=== PATIENT | male | born 1935 | race African-American/Black ===

== ENCOUNTER 2017-09-22 16:18 | Outpatient (CLI) | payer MEDICARE ==
--- NOTE | 2017-09-22 16:29 | SJPRAD ---
TWO VIEWS CHEST: 09/22/17 HISTORY: COPD exacerbation. PA and lateral views of the chest is obtained on 09/22/17. Comparison made to previous exam from 01/11/17. Two views chest demonstrates ectasia of the aorta. There is some blunting of the costophrenic angles bilaterally compatible with small areas of pleural scarring. Areas of patchy density seen in the left lung base compatible with areas of scar. Unchanged since the previous exam from 01/11/17. No signific ant interval changes seen. IMPRESSION: Stable two views chest. POS: SHANTE
== END 2017-09-22 16:19 | disposition home or self-care (01) ==
LOC: MWLC RAD 16:18
PROVIDERS: ATTEND Family Medicine
DX: J44.9 Chronic obstructive pulmonary disease, unspecified (principal)

== ENCOUNTER 2018-06-25 07:41 | Outpatient (CLI) | payer MEDICARE ==
--- NOTE | 2018-06-25 11:11 | CT ---
LUNG SCREENING LOW DOSE CT SCAN OF THE CHEST WITHOUT IV CONTRAST: HISTORY: Asymptomatic patient meeting NCCN criteria for lung screening. COMPARISON: CT pulmonary angiogram dated 01/19/13. FINDINGS: There is a stable 4-5 mm subpleural nodule in the left upper lobe. No new lung nodules are seen. Em physematous changes are redemonstrated bilaterally. Coronary artery calcifications are again noted. No aneurysmal dilatation of the thoracic aorta is se en. No pleural or pericardial effusions are identified. There is bilateral gynecomastia. There are degenerative changes in the spine. IMPRESSION: Lung RADS category 2 - benign appearance or behavior. Nodule with a very low likelihood of becoming a clinically active cancer due to size or lack of growth. RECOMMENDATION: Continue annual screening with low-dose CT in 12 months. POS: SHANTE
== END 2018-06-25 07:42 | disposition home or self-care (01) ==
LOC: CT 07:41
PROVIDERS: ATTEND Family Medicine
DX: F17.291 Nicotine dependence, other tobacco product, in remission (principal); R91.1 Solitary pulmonary nodule
CPT/HCPCS: G0297

== ENCOUNTER 2018-06-27 06:37 | Outpatient (CLI) | payer MEDICARE | END 2018-06-27 06:38 | disposition home or self-care (01) | LOC: BICULT 06:37 | PROVIDERS: ATTEND Family Medicine | DX: F17.291 Nicotine dependence, other tobacco product, in remission (principal) | CPT/HCPCS: 76775 ==

== ENCOUNTER 2018-10-23 12:55 | Outpatient (CLI) | payer MEDICARE ==
--- NOTE | 2018-10-23 14:34 | RAD ---
CHEST PA AND LATERAL: HISTORY: Dyspnea. COMPARISON: 11/17/2017 FINDINGS: The heart size is normal. The aorta is tortuous. Evidence of old granulomatous disease, COPD, and c hronic parenchymal changes are again seen. No focal areas of consolidation, pneumothoraces, or pleur al effusions are identified. IMPRESSION: Stable examination. No acute process. POS: OFF
== END 2018-10-23 12:56 | disposition home or self-care (01) ==
LOC: RAD 12:55
PROVIDERS: ATTEND Internal Medicine Critical Care Medicine
DX: R06.00 Dyspnea, unspecified (principal)
CPT/HCPCS: 71046

== ENCOUNTER 2019-05-29 09:02 | Outpatient (CLI) | payer MEDICARE ==
--- NOTE | 2019-05-29 13:29 | NM ---
Exam: Nuclear medicine whole body bone scan HISTORY: Prostate cancer Comparison: 07/04/2011 TECHNIQUE: Patient was administered 32.20 mCi of technetium 99m sestamibi. Whole body delayed imaging is performed. FINDINGS: There is physiologic distribution of the radiotracer. Persistent increased radiotracer localization i nvolving the posterior right 10th rib. Degenerative changes in both shoulders. No scintigraphic evidence of metastases. IMPRESSION: No scintigraphic evidence of osseous metastases Transcribed Date/Time: 05/29/2019 1:49 PM
== END 2019-05-29 09:03 | disposition home or self-care (01) ==
LOC: NM 09:02
PROVIDERS: ATTEND Urology
DX: C61 Malignant neoplasm of prostate (principal)
CPT/HCPCS: 78306; A9503

== ENCOUNTER 2019-07-29 10:33 | Inpatient (IN) | payer MEDICARE ==
--- NOTE | 2019-07-29 13:02 | ULT ---
Venous duplex sonogram right lower extremity HISTORY: Right leg pain and edema. FINDINGS: The right common femoral vein and greater saphenous junction were evaluated along with the femoral, deep femoral, popliteal, and posterior tibial veins. There is good color and spectral Doppler flow, compression, and augmentation. Reactive appearing lymph nodes at the right groin are noted. IMPRESSION: No sonographic evidence of DVT within the right lower extremity.
[2019-07-29] MEDS ORDERED: Piperacillin/Tazobactam 4.5 GM VIAL ONE (13:36)
[2019-07-29] MEDS ORDERED: HYDROcodone/Acetaminophen 5/325 mg Tablet ONE (13:36)
[2019-07-29 13:47] LABS: #Lymphocytes 1.3 thou/uL (1.20-3.40); #Monocytes 0.7 thou/uL (0.11-0.59); #Neutrophils 7.2 thou/uL (1.40-6.50); %Basophils 0.1 % (0.0-1.0); %Eosinophils 0.1 % (0.0-10.0); %Monocytes 7.1 % (0.0-10.0); %Neutrophils 78.7 % (42.0-75.0); Hemoglobin 11.5 g/dL (14.0-18.0); Mean Corpuscular HGB CONC 30.9 g/dL (32.0-36.0); Mean Corpuscular Hemoglobin 30.3 pg (27.0-31.0); Mean Corpuscular Volume 98.1 fL (78.0-98.0); Mean Platelet Volume 6.8 fL (7.4-10.4); Platelet Count 272 thou/uL (130-400); RBC Distribution Width 11.8 % (11.5-14.5); Red Blood Cell (RBC) Count 3.81 mill/uL (4.70-6.10); White Blood Cell (WBC) Count 9.2 thou/uL (4.8-10.8)
[2019-07-29 14:12] LABS: ALT (SGPT) 14 U/L (8-55); AST (SGOT) 31 U/L (5-34); Albumin 3.7 g/dL (3.4-4.8); Alkaline Phosphatase 68 U/L (40-110); Anion Gap 13 mmol/L (10-20); BUN (Urea Nitrogen) 16 mg/dL (8.4-25.7); Bilirubin, Total 0.6 mg/dL (0.2-1.2); Calc. Creatinine Clearance 0 mL/min (70-130); Calcium 9.9 mg/dL (7.8-10.44); Carbon Dioxide 28 mmol/L (23-31); Chloride 99 mmol/L (98-107); Estimated GFR-MDRD 89; Globulin 4.7 g/dL (2.4-3.5); Glucose 123 mg/dL (83-110); Potassium 5.7 mmol/L (3.5-5.1); Protein, Total 8.4 g/dL (5.8-8.1); Sodium 134 mmol/L (136-145)
[2019-07-29 15:27] LABS: Anion Gap 13 mmol/L (10-20); BUN (Urea Nitrogen) 16 mg/dL (8.4-25.7); Calc. Creatinine Clearance 0 mL/min (70-130); Calcium 9.6 mg/dL (7.8-10.44); Carbon Dioxide 25 mmol/L (23-31); Chloride 100 mmol/L (98-107); Estimated GFR-MDRD Greater than 90; Glucose 124 mg/dL (83-110); Potassium 4.9 mmol/L (3.5-5.1); Sodium 133 mmol/L (136-145)
[2019-07-29] MEDS ORDERED: Acetaminophen 650 MG Suppository PR PRN (17:36)
[2019-07-29] MEDS ORDERED: Ondansetron ODT 4 MG TAB PO PRN (17:36)
[2019-07-29] MEDS ORDERED: Ondansetron PF 4 MG/2 ML Vial IVP PRN (17:36)
[2019-07-29] MEDS ORDERED: Senokot S 8.6-50 MG TAB PO PRN (17:36)
[2019-07-29 17:56] LABS: Lactic Acid 2.6 mmol/L (0.5-2.2)
[2019-07-29] MEDS ORDERED: Dextrose 50% Abboject 50 ML SYRINGE SLOW IVP PRN (18:11)
[2019-07-29] MEDS ORDERED: Dextrose 5% in Water 1,000 ML IV PRN (18:11)
[2019-07-29] MEDS ORDERED: HumaLOG 300 UNITS/3 ML VIAL SC PRN ×2 (18:11)
[2019-07-29 18:55] VITALS: BMI 23.6
--- NOTE | 2019-07-29 19:14 | RAD ---
EXAM: Chest Two Views 07/29/2019 7:11 PM HISTORY: Shortness of breath and wheezing COMPARISON: Prior exam dated October 23, 2018 FINDINGS: Heart: Normal in size and contour. Pulmonary vessels: Normal. Costophrenic angles: Clear. Lungs: Severe COPD is stable. Calcified granuloma of both lung bases appears stable. Pneumothorax: None. Osseous structures:Intact. Additional findings: None. IMPRESSION: No significant acute intrathoracic disease.
[2019-07-29] MEDS: Sodium Chloride 0.9% 1,000 ML IV SCH (19:42)
[2019-07-29] MEDS: Acetaminophen 325 MG TAB PO PRN (20:00)
[2019-07-29] MEDS: Piperacillin/Tazobactam 3.375 GM in Sodium Chloride 0.9% 100 ML IVPB SCH (20:01)
[2019-07-29 21:59] LABS: Bacteria/HPF None Seen HPF (None Seen); Bilirubin Negative (Negative); Blood, Urine Negative (Negative); Clarity Clear (Clear); Glucose, Urine (Dipstick) Normal (Negative); Leukocyte Negative Leu/uL (Negative); Nitrite Negative (Negative); Protein, Urine (Dipstick) Negative (Neg-Trace); RBC/HPF 0-3 HPF (0-3); Squamous Epithelial None Seen HPF (0-3); Urobilinogen Normal mg/dL (Less than 2); WBC/HPF 0-3 HPF (0-3)
[2019-07-29 22:00] LABS: Urine Culture Reflex No No
--- NOTE | 2019-07-30 01:48 | HP ---
TIME OF ASSESSMENT: 1700 hours. PRIMARY CARE PHYSICIAN: None. CHIEF COMPLAINT: Right lower leg swelling and redness. HISTORY OF PRESENT ILLNESS: Mr. Moran is an 84-year-old gentleman, who presents with pain, swelling, and redness of right lower extremity. He states he has noticed that this is progressively worsening for the last week. Apparently, he was seen by his primary care physician and was started on oral antibiotics. The patient is unsure which antibiotic this was, but states he has not had any improvement. Reports having issues with lower leg swelling, which has been chronic in the past. He does state the edema is worse on the right leg than on the left. On arrival to the emergency department, the patient underwent laboratory studies, which showed white blood count of 9.2, neutrophils of 78.7, hemoglobin 11.5, hematocrit 37.4, and platelets 272. Sodium 132, potassium 4.9, BUN 16, creatinine 0.90, GFR greater than 90, glucose 124, lactic acid 2.1, calcium 9.6, and magnesium 1.9. LFTs unremarkable. Protein 8.4. Urinalysis was done and was negative for UTI. He also underwent a vascular ultrasound of the right lower extremity, which showed no sonographic evidence of DVT within the right lower extremity. There were reactive appearing lymph nodes at the right groin. He had a chest x-ray done demonstrating no significant acute intrathoracic disease. He was started on IV antibiotics including vancomycin and Zosyn. Given [place] for pain and received 1 L of IV fluids. The patient referred for further management. REVIEW OF SYSTEMS: The patient denies having any recent fevers, chills, or sweats. Denies having any headaches or dizziness. Denies any nausea or vomiting. No changes with his appetite. Denies any abdominal pain or cramping. No urinary symptoms. All other review of systems are negative. PAST MEDICAL HISTORY: 1. Chronic venous stasis. 2. Recurring lower leg cellulitis. 3. Type 2 diabetes mellitus. 4. Hypertension. 5. Prostate cancer. 6. COPD. PAST SURGICAL HISTORY: None. FAMILY HISTORY: Significant for diabetes in his daughter. SOCIAL HISTORY: The patient reports smoking two packs of cigarettes a day for 40 years in the past. He quit several years ago. Also previously had heavy alcohol consumption, but quit in 1989. Denies any illicit drug use. ALLERGIES: LATEX. CURRENT MEDICATIONS: The patient is unable to provide at this present time. Verification by nurse is pending. PHYSICAL EXAMINATION: GENERAL: The patient appears well developed, well nourished, and is in no acute distress. VITAL SIGNS: Temperature 98.2, pulse rate 80, respirations 17, O2 saturation 90% on room air, and blood pressure 135/69. HEENT: Normocephalic and atraumatic. Pupils are equal, round, and reactive to light. Sclerae without icterus. Oropharynx is clear. NECK: Supple. LUNGS: Notable for mild expiratory wheezing bilaterally at the bases. CARDIAC: Regular rate and rhythm. ABDOMEN: Soft, nontender, nondistended with bowel sounds present. EXTREMITIES: Bilateral lower extremities notable for edema, warmth, and redness evident in the right lower extremity. Edema is +3 bilaterally. He does have evidence of chronic venous stasis in both lower legs. Area of well-healed previous ulcer on the medial aspect of his ankle. NEUROLOGIC: Alert and oriented x3. SKIN: Warm and dry. INVESTIGATIONS: As mentioned above in HPI. IMPRESSION AND PLAN: Mr. Moran is an 84-year-old gentleman with known history of chronic venous stasis and the right lower extremity cellulitis, who presents for management of the following; 1. Recurrent right lower extremity cellulitis. The patient has undergone a Doppler, which was negative for deep venous thrombosis. He has been started on IV antibiotics with vancomycin and Zosyn. Laboratory studies were notable for left shift. Lactic acid normal at 2.1. Urinalysis negative. Chest x-ray unremarkable. We will continue IV antibiotics. 2. Chronic obstructive pulmonary disease. The patient with expiratory wheezing at the bilateral bases, but denies any shortness of breath. We will continue to monitor O2 saturations. DuoNebs ordered. As mentioned, chest x-ray was unremarkable. We will obtain an ABG. 3. Diabetes mellitus. Resume home medications once verified. We will monitor glucose and initiate insulin sliding scale. 4. Hypertension. Resume home medications once verified. Monitor blood pressure. 5. Gastrointestinal prophylaxis with famotidine. 6. Deep venous thrombosis prophylaxis. We will hold mechanical SCDs given degree of edema. The patient is ambulatory. 7. Code status, full. His surrogate decision maker is Marissa Torres. The patient's case to be discussed with attending for further recommendations. Job ID: [id number]
[2019-07-30] MEDS ORDERED: Vancomycin HCl 1 GM in Premix Bag 1 BAG IVPB SCH ×2 (02:00→21:00)
[2019-07-30] MEDS: Piperacillin/Tazobactam 3.375 GM in Sodium Chloride 0.9% 100 ML IVPB SCH ×3 (03:17→16:02)
[2019-07-30] MEDS: Acetaminophen 325 MG TAB PO PRN ×2 (04:11→09:30)
[2019-07-30 05:25] LABS: #Basophils 0.1 thou/uL (0.0-0.2); #Eosinphils 0.2 thou/uL (0.0-0.7); #Lymphocytes 1.8 thou/uL (1.20-3.40); #Monocytes 0.8 thou/uL (0.11-0.59); #Neutrophils 4.3 thou/uL (1.40-6.50); %Basophils 0.8 % (0.0-1.0); %Eosinophils 2.7 % (0.0-10.0); %Lymphocytes 25.2 % (21.0-51.0); %Monocytes 10.7 % (0.0-10.0); %Neutrophils 60.6 % (42.0-75.0); Hemoglobin 9.6 g/dL (14.0-18.0); Mean Corpuscular Hemoglobin 30.6 pg (27.0-31.0); Mean Corpuscular Volume 98.5 fL (78.0-98.0); Mean Platelet Volume 6.6 fL (7.4-10.4); Platelet Count 240 thou/uL (130-400); RBC Distribution Width 11.8 % (11.5-14.5); Red Blood Cell (RBC) Count 3.14 mill/uL (4.70-6.10); White Blood Cell (WBC) Count 7.1 thou/uL (4.8-10.8)
[2019-07-30 05:53] LABS: Anion Gap 9 mmol/L (10-20); BUN (Urea Nitrogen) 14 mg/dL (8.4-25.7); Calc. Creatinine Clearance 79 mL/min (70-130); Calcium 8.8 mg/dL (7.8-10.44); Carbon Dioxide 29 mmol/L (23-31); Chloride 103 mmol/L (98-107); Estimated GFR-MDRD Greater than 90; Glucose 138 mg/dL (83-110); Sodium 137 mmol/L (136-145)
[2019-07-30] MEDS: Acetaminophen/Codeine 30-300mg Tablet PO PRN ×3 (10:55→22:48)
[2019-07-30] MEDS: Sodium Chloride 0.9% 1,000 ML IV SCH (16:02)
[2019-07-30] MEDS ORDERED: Pharmacy to Dose VANC AND CEFEPIME IVPB PRN (16:45)
[2019-07-30] MEDS: Cefepime 2 GM in Sodium Chloride 0.9% 100 ML IVPB SCH (17:39)
[2019-07-30] MEDS: Vancomycin HCl 1.25 GM in Sodium Chloride 0.9% 250 ML 250 ML IVPB SCH (18:09)
[2019-07-31] MEDS: Acetaminophen/Codeine 30-300mg Tablet PO PRN ×2 (04:19→11:49)
[2019-07-31] MEDS: Cefepime 2 GM in Sodium Chloride 0.9% 100 ML IVPB SCH ×2 (04:20→17:13)
[2019-07-31] MEDS: Vancomycin HCl 1.25 GM in Sodium Chloride 0.9% 250 ML 250 ML IVPB SCH ×2 (05:22→17:17)
[2019-07-31 05:36] LABS: #Eosinphils 0.3 thou/uL (0.0-0.7); #Lymphocytes 1.6 thou/uL (1.20-3.40); #Monocytes 0.7 thou/uL (0.11-0.59); #Neutrophils 3.7 thou/uL (1.40-6.50); %Basophils 0.3 % (0.0-1.0); %Eosinophils 4.3 % (0.0-10.0); %Lymphocytes 25.8 % (21.0-51.0); %Monocytes 10.4 % (0.0-10.0); %Neutrophils 59.2 % (42.0-75.0); Hemoglobin 10.8 g/dL (14.0-18.0); Mean Corpuscular HGB CONC 32.7 g/dL (32.0-36.0); Mean Corpuscular Hemoglobin 32.1 pg (27.0-31.0); Mean Platelet Volume 6.6 fL (7.4-10.4); Platelet Count 257 thou/uL (130-400); RBC Distribution Width 11.8 % (11.5-14.5); Red Blood Cell (RBC) Count 3.37 mill/uL (4.70-6.10); White Blood Cell (WBC) Count 6.3 thou/uL (4.8-10.8)
[2019-07-31 05:56] LABS: Anion Gap 10 mmol/L (10-20); BUN (Urea Nitrogen) 10 mg/dL (8.4-25.7); Calc. Creatinine Clearance 81 mL/min (70-130); Calcium 8.7 mg/dL (7.8-10.44); Carbon Dioxide 27 mmol/L (23-31); Chloride 105 mmol/L (98-107); Estimated GFR-MDRD Greater than 90; Glucose 102 mg/dL (83-110); Potassium 4.4 mmol/L (3.5-5.1); Sodium 138 mmol/L (136-145)
[2019-07-31] MEDS: HYDROcodone/Acetaminophen 5/325 mg Tablet PO PRN ×2 (17:13→21:12)
--- NOTE | 2019-07-31 19:11 | PDOC.HOSPP ---
- Subjective Encounter Date: 07/31/19 Subjective: Pt seen says has intractable pain in his right leg and says swelling has not gone down but says redness slightly better Denies nasuea vomiting has mild sob and wheezing with exertion - Objective Vital Signs & Weight: Vital Signs (12 hours) Temp Pulse Resp BP Pulse Ox 07/31/19 19:03 98.1 F 70 16 179/84 H 98 07/31/19 16:00 98.8 F 73 20 166/86 H 92 L 07/31/19 11:00 98.0 F 87 22 H 178/88 H 94 L 07/31/19 08:00 94 L 07/31/19 07:47 97.9 F 78 22 H 143/83 H 94 L Weight Weight 179 lb 8 oz I&O: 07/30/19 07/31/19 08/01/19 06:59 06:59 06:59 Intake Total 1200 Balance 1200 Result Diagrams: 07/31/19 05:07 07/31/19 05:07 Additional Labs: Accuchecks 07/31/19 07/31/19 07/31/19 17:11 12:05 04:13 POC Glucose 118 H 78 94 07/30/19 19:14 POC Glucose 106 Hospitalist ROS - Review of Systems Constitutional: denies: fever Eyes: denies: pain ENT: denies: ear pain Respiratory: denies: cough Cardiovascular: denies: chest pain Gastrointestinal: denies: nausea Musculoskeletal: reports: leg pain, foot pain Skin: reports: rash (chronic venous stasis changes), other - Medication Medications: Active Medications Generic Name Dose Route Start Last Admin Trade Name Eduardoq PRN Reason Stop Dose Admin Acetaminophen 650 mg 07/29/19 17:36 07/30/19 09:30 Tylenol PO 650 mg Q4H PRN Administration Headache/Fever/Mild Pain (1-3) Hydrocodone Bitart/Acetaminophen 1 tab 07/31/19 16:55 07/31/19 17:13 [place] 5/325 PO 1 tab Q4H PRN Administration Pain 4-6 Cefepime HCl 2 gm/ Sodium 100 mls @ 200 mls/hr 07/30/19 17:00 07/31/19 17:13 Chloride IVPB 100 mls 0500,1700 MAURO Administration Vancomycin HCl 1.25 gm/ Sodium 250 mls @ 166.667 mls/hr 07/30/19 18:00 17:17 Chloride IVPB 250 mls 0600,1800 [facility] Administration - Exam General Appearance: awake alert Eye: anicteric sclera ENT: normocephalic atraumatic Neck: supple Heart: no murmur Respiratory: CTAB Gastrointestinal: soft Extremities: 1+ LE edema Extremities - other findings: right leg swelling and redness better , however still has edema Neurological: cranial nerve grossly intact Musculoskeletal: normal tone Hosp A/P - Plan Consults: other Right Leg cellulites with underlying chronic venous stasis Continue IV antibiotics , pain meds changed to norco and morphine due to pain not being reweaved Will keep elevated leg give one dose of lasix COPD continue nebs as needed pt gets wheezing on exertion Continue prn oxygen DM continue montiorign blood sugars HTN continue montioring BP DVT/GI prophyalxis Discussed with pt and nursingg staff
[2019-07-31] MEDS ORDERED: Furosemide 20 MG TAB PO SCH (19:30)
[2019-08-01] MEDS: HYDROcodone/Acetaminophen 5/325 mg Tablet PO PRN ×3 (00:32→09:39)
[2019-08-01] MEDS: Cefepime 2 GM in Sodium Chloride 0.9% 100 ML IVPB SCH ×2 (05:05→17:09)
[2019-08-01 05:59] LABS: Vancomycin, Trough 15.5 ug/mL
[2019-08-01] MEDS: Vancomycin HCl 1.25 GM in Sodium Chloride 0.9% 250 ML 250 ML IVPB SCH ×2 (06:07→17:10)
[2019-08-01] MEDS ORDERED: Cetirizine HCl 10 MG TAB PO SCH (09:00)
[2019-08-01] MEDS ORDERED: Senokot 8.6 MG TAB PO SCH (09:00)
[2019-08-01] MEDS ORDERED: [UNRECOGNIZED DRUG - OTHER] PO SCH (09:00)
[2019-08-01] MEDS ORDERED: Non-Formulary Item 1 EACH (Fluticasone/Umeclidin/Vilanter [Trelegy Ellipta 100-62.5-25] 1 IH SCH (09:00)
[2019-08-01] MEDS: Aspirin 325 MG TAB PO SCH (09:37)
[2019-08-01] MEDS: Montelukast Sodium 10 mg Tablet PO SCH (09:37)
[2019-08-01] MEDS: traZODone HCl 50 MG TAB PO SCH (09:37)
[2019-08-01] MEDS: Loratadine 10 MG TAB PO SCH (09:38)
[2019-08-01] MEDS: Lisinopril 10 MG TAB PO SCH ×2 (09:38→20:17)
[2019-08-01] MEDS: predniSONE 5 MG TAB PO SCH (09:38)
[2019-08-01] MEDS: Tamsulosin HCl 0.4 MG CAP PO SCH (09:39)
[2019-08-01] MEDS: Doxazosin Mesylate 4 MG TAB PO SCH (11:03)
[2019-08-01] MEDS: Bicalutamide 50 MG TAB PO SCH (11:03)
[2019-08-01] MEDS: Senokot 8.6 MG TAB PO SCH ×2 (11:03→20:21)
[2019-08-01] MEDS: Morphine 2 MG/ML SYRINGE SLOW IVP PRN ×2 (15:05→20:46)
--- NOTE | 2019-08-01 15:51 | PDOC.HOSPP ---
- Subjective Encounter Date: 08/01/19 Subjective: Pt seen says has stillmarked pain right leg 7- , Denies chest pain fever headache Dizziness right leg swelling better and improving - Objective Vital Signs & Weight: Vital Signs (12 hours) Temp Pulse Resp BP BP Pulse Ox 08/01/19 14:46 97 24 H 95 08/01/19 09:38 151/75 H 08/01/19 08:00 95 08/01/19 07:13 97.6 F 108 H 16 151/75 H 95 08/01/19 04:07 97.9 F 93 16 164/84 H 93 L Weight Weight 179 lb 8 oz Result Diagrams: 07/31/19 05:07 07/31/19 05:07 Additional Labs: Accuchecks 08/01/19 08/01/19 07/31/19 11:28 04:09 19:09 POC Glucose 99 95 109 07/31/19 17:11 POC Glucose 118 H Hospitalist ROS - Review of Systems Constitutional: denies: fever Eyes: denies: pain ENT: denies: ear pain Respiratory: denies: cough Cardiovascular: denies: chest pain Gastrointestinal: denies: nausea Genitourinary: denies: dysuria Musculoskeletal: reports: neck pain, other (right leg pain persistent , swelling snd redness getting better) Skin: denies: rash Neurological: denies: weakness - Medication Medications: Active Medications Generic Name Dose Route Start Last Admin Trade Name Freq PRN Reason Stop Dose Admin Acetaminophen 650 mg 07/29/19 17:36 07/30/19 09:30 Tylenol PO 650 mg Q4H PRN Administration Headache/Fever/Mild Pain (1-3) Hydrocodone Bitart/Acetaminophen 1 tab 07/31/19 16:55 08/01/19 09:39 [place] 5/325 PO 1 tab Q4H PRN Administration Pain 4-6 Aspirin 325 mg 08/01/19 09:00 08/01/19 09:37 Aspirin PO 325 mg DAILY MAURO Administration Bicalutamide 50 mg 08/01/19 09:00 08/01/19 11:03 Casodex PO 50 mg DAILY MAURO Administration Doxazosin Mesylate 4 mg 08/01/19 09:00 08/01/19 11:03 Cardura PO 4 mg DAILY MAURO Administration Cefepime HCl 2 gm/ Sodium 100 mls @ 200 mls/hr 07/30/19 17:00 08/01/19 05:05 Chloride IVPB 100 mls 0500,1700 MAURO Administration Vancomycin HCl 1.25 gm/ Sodium 250 mls @ 166.667 mls/hr 07/30/19 18:00 06:07 Chloride IVPB 250 mls 0600,1800 MAURO Administration Lisinopril 10 mg 08/01/19 09:00 08/01/19 09:38 Zestril PO 10 mg BID MAUOR Administration Loratadine 10 mg 08/01/19 09:00 08/01/19 09:38 Claritin PO 10 mg DAILY MAURO Administration Montelukast Sodium 10 mg 08/01/19 09:00 08/01/19 09:37 Singulair PO 10 mg DAILY MAURO Administration Morphine Sulfate 2 mg 07/31/19 16:56 08/01/19 15:05 Morphine SLOW IVP 2 mg Q4H PRN Administration Pain 7-10 Prednisone 5 mg 08/01/19 09:00 08/01/19 09:38 Prednisone PO 5 mg DAILY MAURO Administration Senna 1 tab 08/01/19 09:00 08/01/19 11:03 Senokot PO 1 tab BID MAURO Administration Tamsulosin HCl 0.4 mg 08/01/19 09:00 08/01/19 09:39 Flomax PO 0.4 mg DAILY MAURO Administration Trazodone HCl 50 mg 08/01/19 09:00 08/01/19 09:37 Desyrel PO 50 mg DAILY MAURO Administration - Exam General Appearance: awake alert Eye: anicteric sclera ENT: normocephalic atraumatic Neck: supple Heart: no murmur Respiratory: wheezes Gastrointestinal: non-tender Extremities: no cyanosis Skin: normal turgor Neurological: cranial nerve grossly intact Musculoskeletal - other findings: Right leg pain persistent but redness and swelling improving Hosp A/P - Plan Right Leg cellulites with underlying chronic venous stasis Pt persistently c/o pain right leg , however redness and swelling better and improving , Continue IV antibiotics , pain still persistent having pain on norco and morphine keep elevated leg , ID consult requested added gabapentin for pain COPD Excacerbation continue nebs changed to scheduled , pt gets wheezing on exertion Continue prn oxygen DM continue montiorign blood sugars HTN continue montioring BP DVT/GI prophyalxis Discussed with pt and nursingg staff in detail
[2019-08-01] MEDS: cefTRIAXone\\ROCEPHIN 1 GM in Sodium Chloride 0.9% 100 ML IVPB SCH (18:20)
[2019-08-01] MEDS: Mometasone 100 MCG HFA INHALER INH SCH (18:35)
[2019-08-01] MEDS: Gabapentin 100 MG CAP PO SCH (20:17)
--- NOTE | 2019-08-01 21:55 | CON ---
DATE OF CONSULTATION: 08/01/2019 REASON FOR CONSULTATION: Cellulitis, right leg. HISTORY OF PRESENT ILLNESS: An 84-year-old with history of hypertension, type 2 diabetes, and COPD as well as prostate cancer, having been treated with chemotherapy and previous episode of deep vein thrombosis in the left lower extremity, who developed progressively worsening pain in the right leg over the past week and a half. He eventually presented to the emergency room on antibiotics prescribed by his primary care physician and obviously failed oral antibiotic therapy in the outpatient setting. He was then admitted. Initial vital signs showed normal temperature. He appeared in pain in the right leg. There was some wheezing in the lungs diffusely. There are erythema and tenderness in the right leg with some edema as well. The patient has been treated with cefepime and vancomycin. Has experienced improvement since admission. Still moderately tender in the right leg. No headaches. No visual symptoms, sore throat, odynophagia, or dysphagia. No cough or sputum production. No chest pain. No abdominal pain or diarrhea. No dyspnea. No bleeding. No genitourinary symptoms. No joint symptoms. PAST MEDICAL HISTORY: Type 2 diabetes, hypertension, COPD, prostate cancer under treatment with chemotherapy, probably hormonal therapy. Had a bone scan, which did not show any areas of uptake recently completed. History of deep vein thrombosis, left lower extremity, treated in the past. SOCIAL HISTORY: No alcoholic beverage use. No smoking history. Lives in [place]. ALLERGIES: ALLERGY HISTORY IS LATEX. FAMILY HISTORY: Noncontributory. CURRENT MEDICATIONS: In addition to the antibiotics mentioned above, he is on: 1. Prednisone 5 mg daily. 2. Montelukast. 3. Mometasone. 4. Lisinopril. 5. Loratadine. 6. Insulin. 7. Gabapentin. 8. Doxazosin. 9. Aspirin. 10. Inhalers. 11. Hydrocodone. PHYSICAL EXAMINATION: VITAL SIGNS: T-max 98.4, blood pressure 150/75, pulse 97, respirations 16-24, O2 saturation 95 on 2 L nasal cannula. SKIN: Shows areas of hyperpigmentation in lower extremities, which have been present for a while and probably due to stasis dermatitis. Has a little bit of flakiness and exfoliation of the lower extremities particularly on the right side. There is still erythema which is moderate in the right leg with moderate tenderness in a circumferential distribution starting right below the knee all the way to the hindfoot region. No lymphadenopathy. Peripheral IV access. Voiding in the toilet. HEENT: Ocular movements conjugate. The patient has no belkofski teeth remaining in place. NECK: Supple. No jugular venous distention. LUNGS: Symmetric and clear breath sounds. HEART: S1 and S2 regular rate without murmurs. No S3 or S4. ABDOMEN: Soft, not distended or tender. No ascites. No bladder distention. No joint inflammatory activity. Pulses are 2+ in popliteal and 1+ in dorsalis pedis. Edema has improved quite significantly since admission. EXTREMITIES: He moves extremities equally. He is awake, oriented, and follows commands. Has a bit of dysarthric speech, but he is able to comprehend and express proper answers to questions. LABORATORY DATA: White cell count is 9.2, it is down to 6.3; hemoglobin stable at 10.8; MCV 98; platelets 257; 78% neutrophils on admission, down to 59% at this time. Creatinine is 0.8. Liver function profile normal. Albumin 3.7. Urinalysis was normal. Vancomycin trough 15.5. Microbiology with gram-positive indu and one set of blood cultures, likely a contaminant. IMAGING STUDIES: Include vascular ultrasound with no evidence of deep vein thrombosis. Some reactive lymph nodes in the groin noted as expected. Chest x- ray with no infiltrates. ASSESSMENT: Type 2 diabetes, hypertension, prostate cancer, undergoing chemotherapy and prior episode of deep vein thrombosis left lower extremity, as well as venous insufficiency. The patient had been wearing compressive stocking to the right lower extremity before admission, although he sometimes would remove it because of the tightness of fit. Now, cellulitis of the right leg which is improving under treatment. DISCUSSION: Most common causes of cellulitis of this type include beta- hemolytic streptococci. Gram-negative rods are less likely but may develop in patients with chronic illnesses such as liver cirrhosis, end-stage renal disease. He does have a history of deep vein thrombosis, but duplex US was negative at this time. He had been wearing compressive stockings, although I question the compliance because the stockings seem to be fit him too tight. We will go ahead and switch him to Rocephin and then a few more days and he will be able to go home on oral Keflex. He probably needs suppressive penicillin VK 250 mg twice daily for at least 6 months and have a new compressive stocking fitted for his right leg that is not as firm as this one. Job ID: [id number] [facility]
[2019-08-02 06:10] LABS: #Eosinphils 0.3 thou/uL (0.0-0.7); #Lymphocytes 1.5 thou/uL (1.20-3.40); #Monocytes 0.6 thou/uL (0.11-0.59); #Neutrophils 4.2 thou/uL (1.40-6.50); %Basophils 0.5 % (0.0-1.0); %Eosinophils 4.1 % (0.0-10.0); %Lymphocytes 22.7 % (21.0-51.0); %Monocytes 9.5 % (0.0-10.0); %Neutrophils 63.3 % (42.0-75.0); Hemoglobin 10.7 g/dL (14.0-18.0); Mean Corpuscular HGB CONC 31.9 g/dL (32.0-36.0); Mean Platelet Volume 6.5 fL (7.4-10.4); Platelet Count 285 thou/uL (130-400); RBC Distribution Width 11.7 % (11.5-14.5); Red Blood Cell (RBC) Count 3.45 mill/uL (4.70-6.10); White Blood Cell (WBC) Count 6.6 thou/uL (4.8-10.8)
[2019-08-02] MEDS: HYDROcodone/Acetaminophen 5/325 mg Tablet PO PRN ×2 (06:30→20:07)
[2019-08-02 06:35] LABS: Anion Gap 11 mmol/L (10-20); BUN (Urea Nitrogen) 13 mg/dL (8.4-25.7); Calc. Creatinine Clearance 79 mL/min (70-130); Calcium 9.2 mg/dL (7.8-10.44); Carbon Dioxide 30 mmol/L (23-31); Chloride 101 mmol/L (98-107); Estimated GFR-MDRD Greater than 90; Glucose 126 mg/dL (83-110); Potassium 4.6 mmol/L (3.5-5.1); Sodium 137 mmol/L (136-145)
[2019-08-02] MEDS: Mometasone 100 MCG HFA INHALER INH SCH ×2 (06:45→18:09)
[2019-08-02] MEDS: Loratadine 10 MG TAB PO SCH (07:56)
[2019-08-02] MEDS: traZODone HCl 50 MG TAB PO SCH (07:56)
[2019-08-02] MEDS: Tamsulosin HCl 0.4 MG CAP PO SCH (07:56)
[2019-08-02] MEDS: Aspirin 325 MG TAB PO SCH (07:56)
[2019-08-02] MEDS: Lisinopril 10 MG TAB PO SCH ×2 (07:56→20:04)
[2019-08-02] MEDS: Montelukast Sodium 10 mg Tablet PO SCH (07:56)
[2019-08-02] MEDS: Senokot 8.6 MG TAB PO SCH ×2 (07:56→20:04)
[2019-08-02] MEDS: Gabapentin 100 MG CAP PO SCH ×3 (07:56→20:04)
[2019-08-02] MEDS: predniSONE 5 MG TAB PO SCH (07:56)
[2019-08-02] MEDS: Bicalutamide 50 MG TAB PO SCH (07:57)
[2019-08-02] MEDS: Doxazosin Mesylate 4 MG TAB PO SCH (07:57)
[2019-08-02] MEDS: Morphine 2 MG/ML SYRINGE SLOW IVP PRN ×2 (12:12→17:31)
--- NOTE | 2019-08-02 16:57 | PDOC.HOSPP ---
- Subjective Encounter Date: 08/02/19 Subjective: Pt seen c/o marked pain in right leg area says unable to walk right leg due to painpain - Objective Vital Signs & Weight: Vital Signs (12 hours) Temp Pulse Resp BP BP Pulse Ox 08/02/19 13:00 93 20 98 08/02/19 11:15 97.6 F 77 16 127/68 92 L 08/02/19 07:59 98.2 F 88 18 121/66 96 08/02/19 07:57 96 08/02/19 07:56 121/66 08/02/19 06:42 79 22 H 100 Weight Weight 179 lb 8 oz I&O: 08/01/19 08/02/19 08/03/19 06:59 06:59 06:59 Intake Total 540 Output Total 1125 Balance -585 Result Diagrams: 08/02/19 05:38 08/02/19 05:38 Additional Labs: Accuchecks 08/02/19 08/02/19 08/01/19 10:53 04:17 19:01 POC Glucose 121 H 114 H 151 H 08/01/19 16:03 POC Glucose 147 H Hospitalist ROS - Review of Systems Constitutional: reports: weakness Eyes: denies: vision change ENT: denies: ear pain Respiratory: denies: cough Cardiovascular: denies: chest pain Gastrointestinal: denies: nausea Genitourinary: denies: dysuria Musculoskeletal: reports: leg pain Neurological: reports: weakness - Medication Medications: Active Medications Generic Name Dose Route Start Last Admin Trade Name Freq PRN Reason Stop Dose Admin Acetaminophen 650 mg 07/29/19 17:36 07/30/19 09:30 Tylenol PO 650 mg Q4H PRN Administration Headache/Fever/Mild Pain (1-3) Hydrocodone Bitart/Acetaminophen 1 tab 07/31/19 16:55 08/02/19 06:30 [place] 5/325 PO 1 tab Q4H PRN Administration Pain 4-6 Albuterol/Ipratropium 3 ml 08/01/19 19:00 08/02/19 13:00 Duoneb NEB 3 ml [id number] MAURO Administration Aspirin 325 mg 08/01/19 09:00 08/02/19 07:56 Aspirin PO 325 mg DAILY MAURO Administration Bicalutamide 50 mg 08/01/19 09:00 08/02/19 07:57 Casodex PO 50 mg DAILY MAURO Administration Doxazosin Mesylate 4 mg 08/01/19 09:00 08/02/19 07:57 Cardura PO 4 mg DAILY MAURO Administration Gabapentin 100 mg 08/01/19 21:00 08/02/19 15:02 Neurontin PO 100 mg TID MAURO Administration Ceftriaxone Sodium 1 gm/ 100 mls @ 200 mls/hr 08/01/19 18:00 08/01/19 18:20 Sodium Chloride IVPB 100 mls Q24HR MAURO Administration Lisinopril 10 mg 08/01/19 09:00 08/02/19 07:56 Zestril PO 10 mg BID MAURO Administration Loratadine 10 mg 08/01/19 09:00 08/02/19 07:56 Claritin PO 10 mg DAILY MAURO Administration Mometasone Furoate 1 puff 08/01/19 18:30 08/02/19 06:45 Asmanex Hfa 100 Mcg INH 1 puff BID-RT MAURO Administration Montelukast Sodium 10 mg 08/01/19 09:00 08/02/19 07:56 Singulair PO 10 mg DAILY MAURO Administration Morphine Sulfate 2 mg 07/31/19 16:56 08/02/19 12:12 Morphine SLOW IVP 2 mg Q4H PRN Administration Pain 7-10 Prednisone 5 mg 08/01/19 09:00 08/02/19 07:56 Prednisone PO 5 mg DAILY MAURO Administration Senna 1 tab 08/01/19 09:00 08/02/19 07:56 Senokot PO 1 tab BID MAURO Administration Tamsulosin HCl 0.4 mg 08/01/19 09:00 08/02/19 07:56 Flomax PO 0.4 mg DAILY MAURO Administration Trazodone HCl 50 mg 08/01/19 09:00 08/02/19 07:56 Desyrel PO 50 mg DAILY MAURO Administration - Exam General Appearance: awake alert Eye: anicteric sclera ENT: normocephalic atraumatic Neck: supple Heart: no murmur Respiratory: negative: no wheezes Gastrointestinal: soft Extremities: 1+ LE edema Extremities - other findings: right leg warm to touch Skin - other findings: skin pigmentation b/L Lower Musculoskeletal: normal tone Psychiatric: normal affect Hosp A/P - Plan Right Leg cellulites with underlying chronic venous stasis Pt still c/o intractable pain right leg says putting pressure on legs on standing cause him worsening pain , right extremity warm to touch ,redness and swelling better and improving , Continue IV antibiotics ,Continue pain on norco and morphine keep elevated leg , added gabapentin for pain with no improvement of pain , ID consult appreciated COPD Excacerbation continue nebs to scheduled , pt gets wheezing on exertion Continue prn oxygen DM continue montiorign blood sugars HTN continue montioring BP DVT/GI prophyalxis Discussed with pt and nursing staff in detail
[2019-08-02] MEDS: cefTRIAXone\\ROCEPHIN 1 GM in Sodium Chloride 0.9% 100 ML IVPB SCH (17:31)
[2019-08-03] MEDS: Morphine 2 MG/ML SYRINGE SLOW IVP PRN (04:50)
[2019-08-03] MEDS: Mometasone 100 MCG HFA INHALER INH SCH ×2 (06:41→18:21)
[2019-08-03] MEDS: predniSONE 5 MG TAB PO SCH (08:07)
[2019-08-03] MEDS: Aspirin 325 MG TAB PO SCH (08:07)
[2019-08-03] MEDS: Tamsulosin HCl 0.4 MG CAP PO SCH (08:07)
[2019-08-03] MEDS: Loratadine 10 MG TAB PO SCH (08:07)
[2019-08-03] MEDS: Gabapentin 100 MG CAP PO SCH (08:07)
[2019-08-03] MEDS: HYDROcodone/Acetaminophen 5/325 mg Tablet PO PRN ×4 (08:07→21:56)
[2019-08-03] MEDS: Doxazosin Mesylate 4 MG TAB PO SCH (08:07)
[2019-08-03] MEDS: Montelukast Sodium 10 mg Tablet PO SCH (08:07)
[2019-08-03] MEDS: Senokot 8.6 MG TAB PO SCH ×2 (08:07→20:24)
[2019-08-03] MEDS: Lisinopril 10 MG TAB PO SCH ×2 (08:08→20:25)
[2019-08-03] MEDS: Bicalutamide 50 MG TAB PO SCH (08:08)
[2019-08-03] MEDS: Gabapentin 300 MG CAP PO SCH ×2 (14:20→20:24)
--- NOTE | 2019-08-03 16:08 | PDOC.HOSPP ---
- Subjective Subjective: Seen and examined. Patient with cellulitis that has been improving with antibiotics by infectious disease specialist. Patient with lower extremity edema the has been improving. Patient states that he is still having pain most significant in the right lower extremity. Ultrasound lower extremity was negative for DVT. Patient on gabapentin, will increase dose for neuropathy. - Objective Vital Signs & Weight: Vital Signs (12 hours) Temp Pulse Resp BP BP Pulse Ox 08/03/19 15:31 98.1 F 82 20 149/76 H 94 L 08/03/19 14:06 82 20 96 08/03/19 11:17 98.1 F 86 18 134/72 92 L 08/03/19 08:25 95 08/03/19 08:08 163/77 H 08/03/19 08:07 91 L 08/03/19 07:08 98.4 F 86 18 163/77 H 91 L 08/03/19 06:33 75 18 93 L Weight Weight 179 lb 8 oz I&O: 08/02/19 08/03/19 08/04/19 06:59 06:59 05:59 Intake Total 540 670 Output Total 1125 750 Balance -585 -80 Result Diagrams: 08/02/19 05:38 08/02/19 05:38 Additional Labs: Accuchecks 08/03/19 08/03/19 08/02/19 11:19 04:20 20:16 POC Glucose 106 125 H 167 H 08/02/19 17:42 POC Glucose 130 H Radiology Reviewed by me: Yes Hospitalist ROS - Review of Systems All other systems reviewed; all pertinent +/- noted in HPI/Subj - Medication Medications: Active Medications Generic Name Dose Route Start Last Admin Trade Name Freq PRN Reason Stop Dose Admin Acetaminophen 650 mg 07/29/19 17:36 07/30/19 09:30 Tylenol PO 650 mg Q4H PRN Administration Headache/Fever/Mild Pain (1-3) Hydrocodone Bitart/Acetaminophen 1 tab 07/31/19 16:55 08/03/19 13:12 [place] 5/325 PO 1 tab Q4H PRN Administration Pain 4-6 Albuterol/Ipratropium 3 ml 08/01/19 19:00 08/03/19 14:06 Duoneb NEB 3 ml [id number] MAURO Administration Aspirin 325 mg 08/01/19 09:00 08/03/19 08:07 Aspirin PO 325 mg DAILY MAURO Administration Bicalutamide 50 mg 08/01/19 09:00 08/03/19 08:08 Casodex PO 50 mg DAILY MAURO Administration Doxazosin Mesylate 4 mg 08/01/19 09:00 08/03/19 08:07 Cardura PO 4 mg DAILY MAURO Administration Gabapentin 300 mg 08/03/19 15:00 08/03/19 14:20 Neurontin PO 300 mg TID MAURO Administration Ceftriaxone Sodium 1 gm/ 100 mls @ 200 mls/hr 08/01/19 18:00 08/02/19 17:31 Sodium Chloride IVPB 100 mls Q24HR MAURO Administration Lisinopril 10 mg 08/01/19 09:00 08/03/19 08:08 Zestril PO 10 mg BID MAURO Administration Loratadine 10 mg 08/01/19 09:00 08/03/19 08:07 Claritin PO 10 mg DAILY MAURO Administration Mometasone Furoate 1 puff 08/01/19 18:30 08/03/19 06:41 Asmanex Hfa 100 Mcg INH 1 puff BID-RT MAURO Administration Montelukast Sodium 10 mg 08/01/19 09:00 08/03/19 08:07 Singulair PO 10 mg DAILY MAURO Administration Morphine Sulfate 2 mg 07/31/19 16:56 08/03/19 04:50 Morphine SLOW IVP 2 mg Q4H PRN Administration Pain 7-10 Prednisone 5 mg 08/01/19 09:00 08/03/19 08:07 Prednisone PO 5 mg DAILY MAURO Administration Senna 1 tab 08/01/19 09:00 08/03/19 08:07 Senokot PO 1 tab BID MAURO Administration Tamsulosin HCl 0.4 mg 08/01/19 09:00 08/03/19 08:07 Flomax PO 0.4 mg DAILY MAURO Administration - Exam General Appearance: NAD, awake alert Eye: PERRL, anicteric sclera ENT: no oropharyngeal lesions, moist mucosa Neck: symmetric, no JVD Heart: no murmur, no gallops, no rubs Respiratory: CTAB, no wheezes, no rales, no ronchi Gastrointestinal: soft, non-tender, no guarding, no rigidity Extremities: 2+ LE edema Skin - other findings: Chronic LE dai statis dermatitis Neurological: cranial nerve grossly intact, no focal deficits Musculoskeletal: generalized weakness Psychiatric: normal affect, A&O x 3 Hosp A/P (1) Cellulitis of right leg Code(s): L03.115 - CELLULITIS OF RIGHT LOWER LIMB Status: Acute (2) Venous stasis Code(s): I87.8 - OTHER SPECIFIED DISORDERS OF VEINS Status: Acute (3) Neuropathy Code(s): G62.9 - POLYNEUROPATHY, UNSPECIFIED Status: Acute (4) COPD (chronic obstructive pulmonary disease) Status: Acute (5) DM (diabetes mellitus) Code(s): E11.9 - TYPE 2 DIABETES MELLITUS WITHOUT COMPLICATIONS Status: Acute (6) HTN (hypertension) Code(s): I10 - ESSENTIAL (PRIMARY) HYPERTENSION Status: Acute (7) HLD (hyperlipidemia) Code(s): E78.5 - HYPERLIPIDEMIA, UNSPECIFIED Status: Acute (8) BPH (benign prostatic hyperplasia) Code(s): N40.0 - BENIGN PROSTATIC HYPERPLASIA WITHOUT LOWER URINRY TRACT SYMP Status: Acute - Plan Plan: medical unit telemetry right lower extremity cellulitis, on antibiotics per infectious disease specialist this has been improving patient with chronic venous stasis dermatitis patient has never been evaluated for peripheral arterial disease patient with neuropathy lower extremity, on gabapentin will increase dose COPD on breathing treatments, supplemental oxygen as needed blood sugar control for diabetes blood pressure control Echo to eval for CHF
[2019-08-03] MEDS: cefTRIAXone\\ROCEPHIN 1 GM in Sodium Chloride 0.9% 100 ML IVPB SCH (17:01)
[2019-08-03] MEDS: traZODone HCl 50 MG TAB PO SCH (20:25)
[2019-08-04] MEDS: HYDROcodone/Acetaminophen 5/325 mg Tablet PO PRN ×3 (04:01→17:22)
[2019-08-04] MEDS: Mometasone 100 MCG HFA INHALER INH SCH ×2 (06:51→19:04)
[2019-08-04] MEDS: Aspirin 325 MG TAB PO SCH (08:12)
[2019-08-04] MEDS: Gabapentin 300 MG CAP PO SCH ×3 (08:12→20:28)
[2019-08-04] MEDS: Bicalutamide 50 MG TAB PO SCH (08:12)
[2019-08-04] MEDS: predniSONE 5 MG TAB PO SCH (08:12)
[2019-08-04] MEDS: Doxazosin Mesylate 4 MG TAB PO SCH (08:12)
[2019-08-04] MEDS: Montelukast Sodium 10 mg Tablet PO SCH (08:12)
[2019-08-04] MEDS: Lisinopril 10 MG TAB PO SCH ×2 (08:12→20:28)
[2019-08-04] MEDS: Tamsulosin HCl 0.4 MG CAP PO SCH (08:13)
[2019-08-04] MEDS: Loratadine 10 MG TAB PO SCH (08:13)
[2019-08-04] MEDS: Senokot 8.6 MG TAB PO SCH ×2 (08:13→20:28)
[2019-08-04] MEDS: Morphine 2 MG/ML SYRINGE SLOW IVP PRN ×3 (08:22→20:28)
--- NOTE | 2019-08-04 10:15 | PDOC.HOSPP ---
- Subjective Subjective: Seen and examined. Patient finishing echocardiogram. Patient states that he is still having some leg pain in the right calf, it is not significantly worse than yesterday or better. Patient has been on gabapentin, escalating dose. Patient has had an ultrasound of the lower extremity there was negative for DVT. Patient points to an area of his leg where there is a varicose vein, it is possible that varicose veins are causing this pain for the patient. I discussed with the patient about an outpatient follow-up with vascular surgeon for further treatment on varicose veins if this is determined to be the culprit of his leg pain. Cellulitis improved. Patient has no family in town he has some family in [place] and the rest of his family is in [place]. - Objective Vital Signs & Weight: Vital Signs (12 hours) Temp Pulse Resp BP BP Pulse Ox 08/04/19 08:12 164/76 H 08/04/19 08:03 97.6 F 08/04/19 07:00 85 16 164/76 H 99 08/04/19 06:51 90 08/04/19 00:09 82 14 Weight Weight 179 lb 8 oz I&O: 08/03/19 08/04/19 08/05/19 07:59 06:59 06:59 Intake Total Output Total Balance Result Diagrams: 08/02/19 05:38 08/02/19 05:38 Additional Labs: Accuchecks 08/04/19 08/03/19 08/03/19 04:13 19:06 15:55 POC Glucose 126 H 134 H 147 H 08/03/19 11:19 POC Glucose 106 Radiology Reviewed by me: Yes Hospitalist ROS - Review of Systems All other systems reviewed; all pertinent +/- noted in HPI/Subj - Medication Medications: Active Medications Generic Name Dose Route Start Last Admin Trade Name Freq PRN Reason Stop Dose Admin Acetaminophen 650 mg 07/29/19 17:36 07/30/19 09:30 Tylenol PO 650 mg Q4H PRN Administration Headache/Fever/Mild Pain (1-3) Hydrocodone Bitart/Acetaminophen 1 tab 07/31/19 16:55 08/04/19 04:01 [place] 5/325 PO 1 tab Q4H PRN Administration Pain 4-6 Albuterol/Ipratropium 3 ml 08/01/19 19:00 08/04/19 06:51 Duoneb NEB 3 ml [id number] MAURO Administration Aspirin 325 mg 08/01/19 09:00 08/04/19 08:12 Aspirin PO 325 mg DAILY MAURO Administration Bicalutamide 50 mg 08/01/19 09:00 08/04/19 08:12 Casodex PO 50 mg DAILY MAURO Administration Doxazosin Mesylate 4 mg 08/01/19 09:00 08/04/19 08:12 Cardura PO 4 mg DAILY MAURO Administration Gabapentin 300 mg 08/03/19 15:00 08/04/19 08:12 Neurontin PO 300 mg TID MAURO Administration Ceftriaxone Sodium 1 gm/ 100 mls @ 200 mls/hr 08/01/19 18:00 08/03/19 17:01 Sodium Chloride IVPB 100 mls Q24HR MAURO Administration Lisinopril 10 mg 08/01/19 09:00 08/04/19 08:12 Zestril PO 10 mg BID MAURO Administration Loratadine 10 mg 08/01/19 09:00 08/04/19 08:13 Claritin PO 10 mg DAILY MAURO Administration Mometasone Furoate 1 puff 08/01/19 18:30 08/04/19 06:51 Asmanex Hfa 100 Mcg INH 1 puff BID-RT MAURO Administration Montelukast Sodium 10 mg 08/01/19 09:00 08/04/19 08:12 Singulair PO 10 mg DAILY MAURO Administration Morphine Sulfate 2 mg 07/31/19 16:56 08/04/19 08:22 Morphine SLOW IVP 2 mg Q4H PRN Administration Pain 7-10 Prednisone 5 mg 08/01/19 09:00 08/04/19 08:12 Prednisone PO 5 mg DAILY MAURO Administration Senna 1 tab 08/01/19 09:00 08/04/19 08:13 Senokot PO 1 tab BID MAURO Administration Tamsulosin HCl 0.4 mg 08/01/19 09:00 08/04/19 08:13 Flomax PO 0.4 mg DAILY MAURO Administration Trazodone HCl 50 mg 08/03/19 21:00 08/03/19 20:25 Desyrel PO 50 mg HS MAURO Administration - Exam General Appearance: NAD Eye: PERRL, anicteric sclera ENT: normocephalic atraumatic, moist mucosa Neck: supple, symmetric, no lymphadenopathy Heart: no murmur, no gallops, no rubs Respiratory: CTAB, no wheezes, no rales, no ronchi, normal chest expansion Gastrointestinal: soft, non-tender, no palpable masses, no guarding, no rigidity Extremities: 2+ LE edema (improving, skin is wrinkling and shows signs it has less swelling then before.) Skin - other findings: cellulitis resolving. Chronic venous stasis dermatitis Neurological: cranial nerve grossly intact, normal sensation to touch, no focal deficits Musculoskeletal: generalized weakness Psychiatric: normal affect, A&O x 3 Hosp A/P (1) Cellulitis of right leg Code(s): L03.115 - CELLULITIS OF RIGHT LOWER LIMB Status: Acute (2) Venous stasis Code(s): I87.8 - OTHER SPECIFIED DISORDERS OF VEINS Status: Acute (3) Neuropathy Code(s): G62.9 - POLYNEUROPATHY, UNSPECIFIED Status: Acute (4) COPD (chronic obstructive pulmonary disease) Status: Acute (5) DM (diabetes mellitus) Code(s): E11.9 - TYPE 2 DIABETES MELLITUS WITHOUT COMPLICATIONS Status: Acute (6) HTN (hypertension) Code(s): I10 - ESSENTIAL (PRIMARY) HYPERTENSION Status: Acute (7) HLD (hyperlipidemia) Code(s): E78.5 - HYPERLIPIDEMIA, UNSPECIFIED Status: Acute (8) BPH (benign prostatic hyperplasia) Code(s): N40.0 - BENIGN PROSTATIC HYPERPLASIA WITHOUT LOWER URINRY TRACT SYMP Status: Acute - Plan Plan: medical unit telemetry right lower extremity cellulitis, on antibiotics per infectious disease specialist this has been improving patient with chronic venous stasis dermatitis patient has never been evaluated for peripheral arterial disease patient with neuropathy lower extremity, on gabapentin will increase dose COPD on breathing treatments, supplemental oxygen as needed blood sugar control for diabetes blood pressure control Increased Gapapentin for neuropathy Echo to eval for CHF, etiology of LE edema uncertain. Patient denies prior CHF or episodes of LE edema
--- NOTE | 2019-08-04 15:32 | PRG ---
DATE OF SERVICE: 08/04/2019 SUBJECTIVE: Still with moderate pain in the right lower extremity, but better, able to ambulate. No respiratory symptoms or abdominal pain. No diarrhea. OBJECTIVE: VITAL SIGNS: Normal. GENERAL: Awake, alert, oriented. LUNGS: Clear. HEART: S1 and S2. Regular rate. ABDOMEN: Soft, not distended or tender. No ascites. No bladder distention. EXTREMITIES: Right leg with much improvement noticed. There is less edema, less erythema, and less tenderness. LABORATORY DATA: White cell count 6.6, hemoglobin 10.7. Chemistries not reported today. Microbiology with 1/2 sets of blood cultures, corynebacterium, likely contaminant. IMAGING STUDIES: Echocardiogram report, EF 55% to 60%, marked dilation of IVC. ASSESSMENT AND DISCUSSION: Type 2 diabetes; hypertension; prostate cancer, on chemotherapy; prior episode of deep venous thrombosis, left lower extremity; and now cellulitis, right leg, which seems to be responding to Rocephin. We will switch him to oral Keflex. Consider discharge planning after completion of Keflex in another 7 days or so, then transition to oral Pen-Vee K suppressive therapy 250 mg twice daily for 6 to 12 months. Continuation of compressive hose. Job ID: [id number]
--- NOTE | 2019-08-04 16:03 | CT ---
CT Chest W Con History: IVC mass Comparison: Chest radiograph July 21, 2019 Findings: Severe sinus changes including centrilobular and paraseptal and edema. Clinical scarring ri ght upper lobe extending into the minor fissure. Small peripheral pleural-based nodule measuring 4 mm anterior segment left upper lobe axial image 31. Calcified granuloma on the left major fissure. There is intrahepatic biliary dilatation. Mild bilateral gynecomastia. Pleural effusion. No significant adenopathy of the chest. No acute displaced rib fracture. Impression: 1. No acute intrathoracic abnormality. 2. Severe emphysema. 3. Abnormal intrahepatic biliary dilatation. ERCP/MRCP recommended if clinically warranted. Alternati vely, CT examination could be performed to evaluate for distal obstructing mass.
[2019-08-04] MEDS: Sodium Chloride 0.9% 1,000 ML IV SCH (19:00)
[2019-08-04] MEDS: traZODone HCl 50 MG TAB PO SCH (20:28)
[2019-08-04] MEDS: Cephalexin 250 MG CAP PO SCH (21:55)
[2019-08-05] MEDS: Morphine 2 MG/ML SYRINGE SLOW IVP PRN ×2 (05:26→09:54)
[2019-08-05] MEDS: Cephalexin 250 MG CAP PO SCH ×3 (05:26→22:18)
[2019-08-05] MEDS: Mometasone 100 MCG HFA INHALER INH SCH ×2 (06:53→18:00)
[2019-08-05] MEDS: Montelukast Sodium 10 mg Tablet PO SCH (08:02)
[2019-08-05] MEDS: Loratadine 10 MG TAB PO SCH (08:03)
[2019-08-05] MEDS: Lisinopril 10 MG TAB PO SCH ×2 (08:03→20:17)
[2019-08-05] MEDS: Gabapentin 300 MG CAP PO SCH ×3 (08:03→20:17)
[2019-08-05] MEDS: predniSONE 5 MG TAB PO SCH (08:03)
[2019-08-05] MEDS: Senokot 8.6 MG TAB PO SCH ×2 (08:03→20:17)
[2019-08-05] MEDS: Bicalutamide 50 MG TAB PO SCH (08:04)
[2019-08-05] MEDS: Doxazosin Mesylate 4 MG TAB PO SCH (08:04)
[2019-08-05] MEDS: Aspirin 325 MG TAB PO SCH (08:04)
[2019-08-05] MEDS: Tamsulosin HCl 0.4 MG CAP PO SCH (08:04)
[2019-08-05 10:31] LABS: #Eosinphils 0.3 thou/uL (0.0-0.7); #Lymphocytes 1.8 thou/uL (1.20-3.40); #Monocytes 0.6 thou/uL (0.11-0.59); #Neutrophils 4.3 thou/uL (1.40-6.50); %Basophils 0.4 % (0.0-1.0); %Eosinophils 3.7 % (0.0-10.0); %Lymphocytes 25.6 % (21.0-51.0); %Monocytes 8.2 % (0.0-10.0); %Neutrophils 62.1 % (42.0-75.0); Hemoglobin 11.6 g/dL (14.0-18.0); Mean Corpuscular HGB CONC 31.5 g/dL (32.0-36.0); Mean Corpuscular Volume 98.5 fL (78.0-98.0); Mean Platelet Volume 6.2 fL (7.4-10.4); Platelet Count 315 thou/uL (130-400); RBC Distribution Width 12.2 % (11.5-14.5); Red Blood Cell (RBC) Count 3.73 mill/uL (4.70-6.10); White Blood Cell (WBC) Count 6.9 thou/uL (4.8-10.8)
[2019-08-05 10:57] LABS: Anion Gap 14 mmol/L (10-20); BUN (Urea Nitrogen) 14 mg/dL (8.4-25.7); Calc. Creatinine Clearance 81 mL/min (70-130); Calcium 9.6 mg/dL (7.8-10.44); Carbon Dioxide 28 mmol/L (23-31); Chloride 99 mmol/L (98-107); Estimated GFR-MDRD Greater than 90; Glucose 103 mg/dL (83-110); Potassium 4.7 mmol/L (3.5-5.1); Sodium 136 mmol/L (136-145)
--- NOTE | 2019-08-05 11:17 | PDOC.HOSPP ---
- Subjective Subjective: Seen and examined. Lower extremity edema is improved on medical therapy. Pain and tingling sensation in the legs has improved with the addition of gabapentin. Concerning the patient's echocardiogram with a possible IVC mass, discussing case with radiology yesterday pointed towards CT of the chest with contrast this test was performed however no IVC mass was identified. After I discussed this findings with radiologist today he states that there is mixing of contrast in the blood in his IVC is dilated. He recommended performing CT of the abdomen and pelvis with contrast. I have these by a period of time in addition to IV fluids to avoid contrast induced nephropathy. When discussing the case with radiology he states that if we do not see anything on CT scan of the abdomen and pelvis with contrast the next step would be to do an MRI with IVC protocol. Findings were discussed with the patient, time was given for questions, all questions answered in detail. - Objective Vital Signs & Weight: Vital Signs (12 hours) Temp Pulse Resp BP BP Pulse Ox 08/05/19 08:03 163/91 H 08/05/19 08:00 94 L 08/05/19 07:13 97.6 F 93 22 H 143/78 H 92 L 08/05/19 06:51 92 16 92 L 08/05/19 04:00 98.0 F 92 18 129/75 92 L 08/05/19 00:00 97.6 F 94 17 129/80 93 L Weight Weight 179 lb 8 oz I&O: 08/04/19 08/05/19 08/06/19 06:59 06:59 06:59 Intake Total 600 600 Output Total 1875 Balance -1275 600 Result Diagrams: 08/05/19 10:08 08/05/19 10:08 Additional Labs: Accuchecks 08/05/19 08/04/19 08/04/19 05:02 19:03 16:29 POC Glucose 141 H 108 133 H 08/04/19 11:14 POC Glucose 130 H Radiology Reviewed by me: Yes (CT chest) Hospitalist ROS - Review of Systems All other systems reviewed; all pertinent +/- noted in HPI/Subj - Medication Medications: Active Medications Generic Name Dose Route Start Last Admin Trade Name Freq PRN Reason Stop Dose Admin Acetaminophen 650 mg 07/29/19 17:36 07/30/19 09:30 Tylenol PO 650 mg Q4H PRN Administration Headache/Fever/Mild Pain (1-3) Hydrocodone Bitart/Acetaminophen 1 tab 07/31/19 16:55 08/04/19 17:22 [place] 5/325 PO 1 tab Q4H PRN Administration Pain 4-6 Albuterol/Ipratropium 3 ml 08/01/19 19:00 08/05/19 06:51 Duoneb NEB 3 ml [id number] MAURO Administration Aspirin 325 mg 08/01/19 09:00 08/05/19 08:04 Aspirin PO 325 mg DAILY MAURO Administration Bicalutamide 50 mg 08/01/19 09:00 08/05/19 08:04 Casodex PO 50 mg DAILY MAURO Administration Cephalexin 500 mg 08/04/19 22:00 08/05/19 05:26 Keflex PO 500 mg Q8HR MAURO Administration Doxazosin Mesylate 4 mg 08/01/19 09:00 08/05/19 08:04 Cardura PO 4 mg DAILY MAURO Administration Gabapentin 300 mg 08/03/19 15:00 08/05/19 08:03 Neurontin PO 300 mg TID MAURO Administration Sodium Chloride 1,000 mls @ 50 mls/hr 08/04/19 17:30 08/04/19 19:00 Normal Saline 0.9% IV 1,000 mls .Q20H MAURO Administration Lisinopril 10 mg 08/01/19 09:00 08/05/19 08:03 Zestril PO 10 mg BID MAURO Administration Loratadine 10 mg 08/01/19 09:00 08/05/19 08:03 Claritin PO 10 mg DAILY MAURO Administration Mometasone Furoate 1 puff 08/01/19 18:30 08/05/19 06:53 Asmanex Hfa 100 Mcg INH 1 puff BID-RT MAURO Administration Montelukast Sodium 10 mg 08/01/19 09:00 08/05/19 08:02 Singulair PO 10 mg DAILY MAURO Administration Morphine Sulfate 2 mg 07/31/19 16:56 08/05/19 09:54 Morphine SLOW IVP 2 mg Q4H PRN Administration Pain 7-10 Prednisone 5 mg 08/01/19 09:00 08/05/19 08:03 Prednisone PO 5 mg DAILY MAURO Administration Senna 1 tab 08/01/19 09:00 08/05/19 08:03 Senokot PO 1 tab BID MAURO Administration Tamsulosin HCl 0.4 mg 08/01/19 09:00 08/05/19 08:04 Flomax PO 0.4 mg DAILY MAURO Administration Trazodone HCl 50 mg 08/03/19 21:00 08/04/19 20:28 Desyrel PO 50 mg HS MAURO Administration - Exam General Appearance: NAD, awake alert Eye: PERRL, anicteric sclera ENT: normocephalic atraumatic, moist mucosa Neck: supple, symmetric, no lymphadenopathy Heart: no murmur, no gallops, no rubs Respiratory: CTAB, no wheezes, no rales, no ronchi Gastrointestinal: soft, non-tender, non-distended, no guarding, no rigidity Extremities: 1+ LE edema Skin - other findings: Chronic venous stasis dermatitis Neurological: cranial nerve grossly intact, no focal deficits Musculoskeletal: generalized weakness Psychiatric: normal affect, A&O x 3 Hosp A/P (1) Cellulitis of right leg Code(s): L03.115 - CELLULITIS OF RIGHT LOWER LIMB Status: Acute (2) Venous stasis Code(s): I87.8 - OTHER SPECIFIED DISORDERS OF VEINS Status: Acute (3) Neuropathy Code(s): G62.9 - POLYNEUROPATHY, UNSPECIFIED Status: Acute (4) COPD (chronic obstructive pulmonary disease) Status: Acute (5) DM (diabetes mellitus) Code(s): E11.9 - TYPE 2 DIABETES MELLITUS WITHOUT COMPLICATIONS Status: Acute (6) HTN (hypertension) Code(s): I10 - ESSENTIAL (PRIMARY) HYPERTENSION Status: Acute (7) HLD (hyperlipidemia) Code(s): E78.5 - HYPERLIPIDEMIA, UNSPECIFIED Status: Acute (8) BPH (benign prostatic hyperplasia) Code(s): N40.0 - BENIGN PROSTATIC HYPERPLASIA WITHOUT LOWER URINRY TRACT SYMP Status: Acute - Plan Plan: medical unit telemetry Infectious disease consult, recommendations appreciated CT abd/ pelvis with contrast on 08/06/19 to avoid 2 contrast loads back to back and avoid contrast induced nephropathy CT chest with contrast reviewed with radiologist 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 seen on echocardiogram, preserved EF Radiologist states that if CT abd/ pelvis does not identify explanation of IVC mass - the next step would be to preform a MRI with IVC protocol right lower extremity cellulitis, on antibiotics per infectious disease specialist this has been improving, oral ABX for D/c Radiology states that renal cell carcinoma may met to IVC, though not common IVC sarcoma can also occur patient with chronic venous stasis dermatitis patient has never been evaluated for peripheral arterial disease, consider as an outpatient patient with neuropathy lower extremity, on gabapentin with improved symptoms Increased Gapapentin for neuropathy COPD on breathing treatments, supplemental oxygen as needed blood sugar control for diabetes blood pressure control
[2019-08-05] MEDS: HYDROcodone/Acetaminophen 5/325 mg Tablet PO PRN ×2 (13:54→20:17)
[2019-08-05] MEDS: Sodium Chloride 0.9% 1,000 ML IV SCH (13:55)
[2019-08-05] MEDS: traZODone HCl 50 MG TAB PO SCH (20:17)
[2019-08-06] MEDS: HYDROcodone/Acetaminophen 5/325 mg Tablet PO PRN ×3 (02:29→19:44)
[2019-08-06 05:56] LABS: #Eosinphils 0.3 thou/uL (0.0-0.7); #Lymphocytes 1.7 thou/uL (1.20-3.40); #Monocytes 0.6 thou/uL (0.11-0.59); #Neutrophils 3.3 thou/uL (1.40-6.50); %Basophils 0.3 % (0.0-1.0); %Eosinophils 4.5 % (0.0-10.0); %Lymphocytes 29.1 % (21.0-51.0); %Monocytes 10.3 % (0.0-10.0); %Neutrophils 55.8 % (42.0-75.0); Hemoglobin 10.7 g/dL (14.0-18.0); Mean Corpuscular HGB CONC 31.3 g/dL (32.0-36.0); Mean Corpuscular Hemoglobin 30.7 pg (27.0-31.0); Mean Corpuscular Volume 98.2 fL (78.0-98.0); Platelet Count 283 thou/uL (130-400); RBC Distribution Width 12.1 % (11.5-14.5); Red Blood Cell (RBC) Count 3.48 mill/uL (4.70-6.10); White Blood Cell (WBC) Count 5.9 thou/uL (4.8-10.8)
[2019-08-06 06:18] LABS: Anion Gap 9 mmol/L (10-20); BUN (Urea Nitrogen) 17 mg/dL (8.4-25.7); Calc. Creatinine Clearance 83 mL/min (70-130); Calcium 9.1 mg/dL (7.8-10.44); Carbon Dioxide 28 mmol/L (23-31); Chloride 104 mmol/L (98-107); Estimated GFR-MDRD Greater than 90; Glucose 109 mg/dL (83-110); Potassium 4.4 mmol/L (3.5-5.1); Sodium 137 mmol/L (136-145)
[2019-08-06] MEDS: Mometasone 100 MCG HFA INHALER INH SCH ×2 (06:31→18:47)
[2019-08-06] MEDS: Cephalexin 250 MG CAP PO SCH ×3 (06:42→21:08)
[2019-08-06] MEDS: Morphine 2 MG/ML SYRINGE SLOW IVP PRN ×2 (07:52→21:12)
[2019-08-06] MEDS: Aspirin 325 MG TAB PO SCH (08:45)
[2019-08-06] MEDS: Senokot 8.6 MG TAB PO SCH ×2 (08:45→19:45)
[2019-08-06] MEDS: Montelukast Sodium 10 mg Tablet PO SCH (08:46)
[2019-08-06] MEDS: Lisinopril 10 MG TAB PO SCH ×2 (08:46→19:45)
[2019-08-06] MEDS: predniSONE 5 MG TAB PO SCH (08:46)
[2019-08-06] MEDS: Loratadine 10 MG TAB PO SCH (08:46)
[2019-08-06] MEDS: Bicalutamide 50 MG TAB PO SCH (08:47)
[2019-08-06] MEDS: Tamsulosin HCl 0.4 MG CAP PO SCH (08:47)
[2019-08-06] MEDS: Doxazosin Mesylate 4 MG TAB PO SCH (08:48)
[2019-08-06] MEDS: Sodium Chloride 0.9% 1,000 ML IV SCH (08:52)
[2019-08-06] MEDS: Gabapentin 300 MG CAP PO SCH ×3 (08:52→19:44)
--- NOTE | 2019-08-06 09:10 | CT ---
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 COMPARISON: CT examination of the chest of 08/04/2019. FINDINGS: There are severe emphysematous lung changes with bibasilar interstitial change which appear s to represent atelectasis. 4. The abdomen portion of the examination images were obtained at 65 seconds and approximately 60 sec onds flailing attempt to negate the mixing of unopacified blood within the IVC. Liver shows no focal abnormalities shows mild intrahepatic ductal prominence extrahepatic duct does n ot appear significantly dilated and the gallbladder is not distended. The liver is within normal limits of size. The spleen is normal in appearance the pancreas region is unremarkable. Right and left adrenal glands are normal. Hypodensities involving both kidneys are noted some which a re too small to characterize but these were appear to represent cysts no suspicious mass identified. There is no significant periaortic or mesenteric adenopathy. There is still uneven mixing of contrasted and noncontrasted blood within the IVC but in evaluating t he 2 phases done on today's study as well as a CT of the chest done 08/04/2019 I do not see anything that would suggest an IVC mass. There is a moderate amount of stool within the colon. CT of pelvis performed with contrast: No evidence of adenopathy, mass or free fluid. IMPRESSION: 1. No evidence for an IVC mass. There is still some uneven mixing of blood but I do not see any suspi cious findings. 2. Bilateral renal cysts. 3. Mild intrahepatic ductal dilatation without evidence of gallbladder distention or dilatation the e xtrahepatic duct the significance of this is unclear correlation with bilirubin is suggested. 4. Severe emphysematous lung change.
[2019-08-06 14:51] LABS: ALT (SGPT) 19 U/L (8-55); AST (SGOT) 23 U/L (5-34); Albumin 3.5 g/dL (3.4-4.8); Alkaline Phosphatase 88 U/L (40-110); Bilirubin, Direct 0.2 mg/dL (0.1-0.3); Bilirubin, Total 0.3 mg/dL (0.2-1.2); Protein, Total 7.3 g/dL (5.8-8.1)
--- NOTE | 2019-08-06 16:34 | RAD ---
EXAM: Chest Two Views 08/06/2019 4:31 PM HISTORY: Shortness of breath COMPARISON: July 29, 2019 FINDINGS: Heart: Normal in size and contour. Pulmonary vessels: Normal. Costophrenic angles: Clear. Lungs: Calcified granuloma left lung is stable. COPD changes stable. Pneumothorax: None. Osseous structures:Intact. Additional findings: None. IMPRESSION: No significant acute intrathoracic disease.
--- NOTE | 2019-08-06 16:43 | NM ---
EXAM: NM Lung Vent Perf Imaging PROVIDED CLINICAL HISTORY: Shortness of breath. COPD. History of prior DVT. COMPARISON: CT thorax on 08/04/2019 as well as chest x-ray obtained on today's date. FINDINGS: There is heterogeneity of uptake of radiotracer on the perfusion portion of the examination. No defin ite discrete segmental or subsegmental perfusion defect is appreciated. Areas of heterogeneity are matched with the ventilatory findings. However, the recent CT exam on 08/04/2019 demonstrates bullous emphysematous changes which likely accounts for these matched findings. No ventilation/perfusion mismatch is identified. IMPRESSION: Low probability for pulmonary embolus. Above findings were reviewed with Dr. Taylor who is in agreement with the above findings and assessmen t.
--- NOTE | 2019-08-06 18:34 | PDOC.HOSPP ---
- Subjective Encounter Date: 08/06/19 Encounter Time: 15:00 Subjective: pt up in bed still is on oxygen and he does not wear oxygen at home. - Objective Vital Signs & Weight: Vital Signs (12 hours) Temp Pulse Resp BP BP Pulse Ox 08/06/19 16:00 97.5 F L 89 16 156/79 H 94 L 08/06/19 14:09 79 16 93 L 08/06/19 08:46 122/72 08/06/19 08:00 93 L 08/06/19 07:51 98.0 F 76 16 165/72 H 93 L Weight Weight 179 lb 8 oz I&O: 08/05/19 08/06/19 08/07/19 06:59 06:59 06:59 Intake Total 600 3100 600 Output Total 1875 1600 Balance -1275 1500 600 Result Diagrams: 08/06/19 05:45 08/06/19 05:45 Additional Labs: Accuchecks 08/06/19 08/06/19 08/06/19 17:14 12:01 04:12 POC Glucose 131 H 120 H 119 H 08/05/19 19:03 POC Glucose 102 Hospitalist ROS - Review of Systems Cardiovascular: denies: chest pain, palpitations, orthopnea, paroxysmal noc. dyspnea, edema, light headedness, other Gastrointestinal: denies: nausea, vomiting, abdominal pain, diarrhea, constipation, melena, hematochezia, other Genitourinary: denies: dysuria, frequency, incontinence, hematuria, retention, other - Medication Medications: Active Medications Generic Name Dose Route Start Last Admin Trade Name Freq PRN Reason Stop Dose Admin Acetaminophen 650 mg 07/29/19 17:36 07/30/19 09:30 Tylenol PO 650 mg Q4H PRN Administration Headache/Fever/Mild Pain (1-3) Hydrocodone Bitart/Acetaminophen 1 tab 07/31/19 16:55 08/06/19 14:41 Rice 5/325 PO 1 tab Q4H PRN Administration Pain 4-6 Albuterol/Ipratropium 3 ml 08/01/19 19:00 08/06/19 14:09 Duoneb NEB 3 ml [id number] MAURO Administration Aspirin 325 mg 08/01/19 09:00 08/06/19 08:45 Aspirin PO 325 mg DAILY MAURO Administration Bicalutamide 50 mg 08/01/19 09:00 08/06/19 08:47 Casodex PO 50 mg DAILY MAURO Administration Cephalexin 500 mg 08/04/19 22:00 08/06/19 14:41 Keflex PO 500 mg Q8HR MAURO Administration Doxazosin Mesylate 4 mg 08/01/19 09:00 08/06/19 08:48 Cardura PO 4 mg DAILY MAURO Administration Gabapentin 300 mg 08/03/19 15:00 08/06/19 14:41 Neurontin PO 300 mg TID MAURO Administration Sodium Chloride 1,000 mls @ 50 mls/hr 08/04/19 17:30 08/06/19 08:52 Normal Saline 0.9% IV 1,000 mls .Q20H MAURO Administration Lisinopril 10 mg 08/01/19 09:00 08/06/19 08:46 Zestril PO 10 mg BID MAURO Administration Loratadine 10 mg 08/01/19 09:00 08/06/19 08:46 Claritin PO 10 mg DAILY MAURO Administration Mometasone Furoate 1 puff 08/01/19 18:30 08/06/19 06:31 Asmanex Hfa 100 Mcg INH 1 puff BID-RT MAURO Administration Montelukast Sodium 10 mg 08/01/19 09:00 08/06/19 08:46 Singulair PO 10 mg DAILY MAURO Administration Morphine Sulfate 2 mg 07/31/19 16:56 08/06/19 07:52 Morphine SLOW IVP 2 mg Q4H PRN Administration Pain 7-10 Prednisone 5 mg 08/01/19 09:00 08/06/19 08:46 Prednisone PO 5 mg DAILY MAURO Administration Senna 1 tab 08/01/19 09:00 08/06/19 08:45 Senokot PO 1 tab BID MAURO Administration Tamsulosin HCl 0.4 mg 08/01/19 09:00 08/06/19 08:47 Flomax PO 0.4 mg DAILY MAURO Administration Trazodone HCl 50 mg 08/03/19 21:00 08/05/19 20:17 Desyrel PO 50 mg HS MAURO Administration - Exam Neck: negative: supple, symmetric, no JVD, no thyromegaly, no lymphadenopathy, no carotid bruit, JVD Heart: negative: RRR, no murmur, no gallops, no rubs, normal peripheral pulses, irregular, diminshed peripheral pulses, murmur present, II/IV, III/IV Respiratory: rales. negative: CTAB, no wheezes, no rales, no ronchi, normal chest expansion, no tachypnea, normal percussion, rhonchi, tachypneic, wheezes Hosp A/P (1) Cellulitis Code(s): L03.90 - CELLULITIS, UNSPECIFIED Status: Acute (2) SOB (shortness of breath) Code(s): R06.02 - SHORTNESS OF BREATH Status: Acute (3) COPD (chronic obstructive pulmonary disease) Status: Acute (4) DM (diabetes mellitus) Code(s): E11.9 - TYPE 2 DIABETES MELLITUS WITHOUT COMPLICATIONS Status: Acute (5) HTN (hypertension) Code(s): I10 - ESSENTIAL (PRIMARY) HYPERTENSION Status: Acute - Plan will continue oral abx. his ct abd/pel does not show any ivc mass. His oxygen sat drops when he ambulates down to 86% on RA. I will get a VQ scan given his previous hx of dvt. His echo indicated a good ef. if the Vq is negative he will need home oxygen. He does have sever emphysema on ct
[2019-08-06] MEDS: traZODone HCl 50 MG TAB PO SCH (19:44)
[2019-08-07] MEDS: HYDROcodone/Acetaminophen 5/325 mg Tablet PO PRN ×2 (02:36→09:55)
[2019-08-07] MEDS: Morphine 2 MG/ML SYRINGE SLOW IVP PRN (05:29)
[2019-08-07] MEDS: Cephalexin 250 MG CAP PO SCH ×2 (05:29→14:42)
[2019-08-07] MEDS: Sodium Chloride 0.9% 1,000 ML IV SCH (05:31)
[2019-08-07] MEDS: Mometasone 100 MCG HFA INHALER INH SCH (06:41)
[2019-08-07] MEDS: Doxazosin Mesylate 4 MG TAB PO SCH (07:38)
[2019-08-07] MEDS: Senokot 8.6 MG TAB PO SCH (07:39)
[2019-08-07] MEDS: Montelukast Sodium 10 mg Tablet PO SCH (07:39)
[2019-08-07] MEDS: Aspirin 325 MG TAB PO SCH (07:39)
[2019-08-07] MEDS: Lisinopril 10 MG TAB PO SCH (07:39)
[2019-08-07] MEDS: Bicalutamide 50 MG TAB PO SCH (07:39)
[2019-08-07] MEDS: Loratadine 10 MG TAB PO SCH (07:40)
[2019-08-07] MEDS: predniSONE 5 MG TAB PO SCH (07:40)
[2019-08-07] MEDS: Gabapentin 300 MG CAP PO SCH ×2 (07:40→14:42)
[2019-08-07] MEDS: Tamsulosin HCl 0.4 MG CAP PO SCH (07:40)
[2019-08-07 12:43] VITALS: BP 154/71; TEMP 97.7
--- NOTE | 2019-08-08 04:33 | PQF ---
NATHAN ARZOLA KARISHMA [id number] CLINICAL DOCUMENTATION CLARIFICATION FORM: POST DISCHARGE Addendum to original discharge summary date: ____ Late entry note date: __ DATE: 08/08/19 ATTN: Ruth Krishnamurthy Please exercise your independent, professional judgment in responding to the clarification form. Clinical indicators are provided on the bottom of this form for your review Please check appropriate box(s): [ ] Cellulitis due to Diabetes [x ] Cellulitis due to Venous Stasis ulcer with PVD [ ] Other diagnosis [ ] Unable to determine In addition, please specify: Present on Admission (POA): [ x ] Yes [ ] No [ ] Unable to determine For continuity of documentation, please document condition throughout progress notes and discharge summary. Thank You. CLINICAL INDICATORS - SIGNS / SYMPTOMS / LABS H&P p1 07/29 Veronica CARRILLO Presents with pain, swelling and redness of right lower extremity H&P p1 07/29 Veronica CARRILLO Reports having issues with lower leg swelling, which has been chronic in the past H&P p1 07/29 Veronica CARRILLO BUN 16, crea0.90, GFR greater than 90, Glucose 124 RISKS: H&P p1 07/29 Chronic Venous stasis H&P p1 07/29 Type 2 diabetes mellitus H&P p1 07/29 Recurring lower leg cellulitis H&P p2 07/29 84 year-old gentlemen TREATMENT: DEC 09 IV Vancomycin DEC 09 IV Zosyn H&P p3 07/29 Monitor blood glucose and initiate insulin sliding scale (This form is maintained as a part of the permanent medical record) 2014 [employer] All Rights Reserved [email or web address] [not provided] MTDD
--- NOTE | 2019-08-08 11:11 | DIS ---
DATE OF ADMISSION: 07/29/2019 DATE OF DISCHARGE: 08/07/2019 DISCHARGE DIAGNOSES: 1. Cellulitis of the right foot. 2. Chronic obstructive pulmonary disease exacerbation. 3. Hypertension. 4. Shortness of breath. 5. Diabetes. 6. History of deep vein thrombosis. HOSPITAL COURSE: The patient is a very pleasant 84-year-old male, who initially presented to the hospital with right lower extremity cellulitis. He underwent Dopplers which were negative. He underwent broad-spectrum antibiotics. He also was found to be short of breath and a little bit of in COPD exacerbation. He was put on some DuoNeb and also a breathing treatment. The patient continued to improve; however, due to his shortness of breath, he also underwent echocardiogram. On the echocardiogram, he was found to have an EF of 50% to 55%; however, there was marked dilation of the IVC and appeared to be a possible clot or mass in the IVC. At this time, he went further workup with a CT chest with contrast, which did not indicate any acute thoracic abnormalities; however, it showed severe emphysema and recommended a CT abdomen for better viewing of the IVC. Also, he had significant amount of intrahepatic biliary duct dilation. The patient then underwent a CT of abdomen and pelvis with contrast, which indicated that there was no evidence of IVC mass. There was just some mixing of blood, but did not see any suspicion findings. However, he did have mild intrahepatic duct dilation without any evidence of gallbladder distention or any dilation of the extrahepatic duct. He also had severe emphysematous changes. The patient was found to be hypoxic and was kept on oxygen. We did walk him. His oxygen saturations did drop without oxygenation. At this time given his history of DVTs in the past, we did a pulmonary function test since he had had significant amount of contrast for his CT chest and abdomen. I did speak with the radiologist in regard to the CT chest, however, since it was not done as a CTA protocol, he could not really tell me about his small vessels, but the main pulmonary artery was free of any clots. The PFT showed a low probability of any pulmonary embolism. I have advised the patient to follow up with his primary in regard to this intrahepatic duct dilation, he understands. I also will put him on some oxygen. I have asked him to follow up with his front end assistant and his primary. The patient states that he does not require oxygenation; however, I have emphasized that he needs to continue that and he does have emphysema. The patient will be discharged home. He will be on antibiotics. He will follow up again with primary care doctor and front end assistant for his lungs and also for his dilation of the intrahepatic duct. We did check his LFTs and his LFTs were normal. MEDICATIONS: Home medications will be as of the followin. Keflex 500 mg q.8 hours for next 7 days. 2. Florastor 250 daily. 3. Aspirin 325 daily. 4. Singulair 10 mg daily. 5. Flomax 0.4 daily. 6. Glipizide 2.5 daily. 7. Bicalutamide 50 mg daily. 8. Doxazosin 4 mg daily. 9. Trelegy Ellipta one inhalation daily. He is also on: 1. Prednisone 5 mg daily. 2. Terazosin 50 mg daily. 3. Sildenafil 100 mg p.o. daily. PHYSICAL EXAMINATION: VITAL SIGNS: Temperature of 97.7, pulse 87, respirations 20, 92% on 2 L, blood pressure 154/71. GENERAL: He is awake, alert, and oriented x3. Does not appear in distress. CV: S1, S2 present. No murmurs, rubs, or gallops. ABDOMEN: Soft and nontender. Bowel sounds are present x2. EXTREMITIES: No edema. Again, he will be discharged home. He will follow up with his primary and Pulmonary and I have emphasized to him that he needs to continue wearing oxygen and also follow up with his front end assistant. He will also need to follow up with his custom applicator for his dilated intrahepatic ducts. Job ID: [id number]
== END 2019-08-07 15:00 | disposition home or self-care (01) | DRG 603 ==
LOC: ERS 10:33 → T4-B 16:30
PROVIDERS: ADMIT Internal Medicine; ATTEND Internal Medicine
DX: L03.115 Cellulitis of right lower limb (principal); I10 Essential (primary) hypertension; E11.51 Type 2 diabetes mellitus with diabetic peripheral angiopathy without gangrene; I87.2 Venous insufficiency (chronic) (peripheral); N40.0 Benign prostatic hyperplasia without lower urinary tract symptoms; E11.40 Type 2 diabetes mellitus with diabetic neuropathy, unspecified; J43.9 Emphysema, unspecified; C61 Malignant neoplasm of prostate; Z87.891 Personal history of nicotine dependence; Z91.040 Latex allergy status; Z86.718 Personal history of other venous thrombosis and embolism; Z79.899 Other long term (current) drug therapy; Z79.4 Long term (current) use of insulin; Z79.51 Long term (current) use of inhaled steroids; Z79.82 Long term (current) use of aspirin
CPT/HCPCS: 36415; 36416; 71046; 71260; 74178; 78582; 80048; 80053; 80076; 80202; 81001; 82306; 83605; 83735; 83880; 84443; 85025; 87040; 93306; 94640; 94760; 96365; 96367; A9540; A9558; J0692; J0696; J2270; J2543; J3370; J3490; J7050; J7512; J7620

== ENCOUNTER 2019-11-20 15:25 | Outpatient (CLI) | payer MEDICARE ==
--- NOTE | 2019-11-20 15:41 | RAD ---
EXAM: Two views chest PROVIDED CLINICAL HISTORY: Bronchitis. COMPARISON: 08/06/2019 FINDINGS: Cardiac silhouette and pulmonary vasculature are within normal limits. Chronic lung changes are agai n seen with hyperexpansion of the lungs. Calcified granuloma is again seen in the expected location of the lingula. No consolidation or pleural fluid is seen.. There has been no other interval change w hen compared to prior study. IMPRESSION: Chronic lung changes without evidence of an acute cardiopulmonary process..
== END 2019-11-20 15:26 | disposition home or self-care (01) ==
LOC: BICRAD 15:25
PROVIDERS: ATTEND Family Medicine
DX: J40 Bronchitis, not specified as acute or chronic (principal)
CPT/HCPCS: 71046

== ENCOUNTER 2021-06-25 19:42 | Emergency (ER) | payer MEDICARE ==
[2021-06-25 20:46] LABS: #Basophils 0.1 thou/uL (0.0-0.2); #Eosinphils 0.1 thou/uL (0.0-0.7); #Lymphocytes 2.6 thou/uL (1.20-3.40); #Monocytes 0.6 thou/uL (0.11-0.59); #Neutrophils 4.6 thou/uL (1.40-6.50); %Basophils 0.6 % (0.0-1.0); %Eosinophils 0.9 % (0.0-10.0); %Lymphocytes 32.6 % (21.0-51.0); %Monocytes 7.2 % (0.0-10.0); %Neutrophils 58.6 % (42.0-75.0); Hemoglobin 12.8 g/dL (14.0-18.0); Mean Corpuscular HGB CONC 31.8 g/dL (32.0-36.0); Mean Corpuscular Hemoglobin 31.4 pg (27.0-31.0); Mean Corpuscular Volume 98.7 fL (78.0-98.0); Platelet Count 147 thou/uL (130-400); RBC Distribution Width 12.2 % (11.5-14.5); Red Blood Cell (RBC) Count 4.06 mill/uL (4.70-6.10); White Blood Cell (WBC) Count 7.8 thou/uL (4.8-10.8)
[2021-06-25 21:05] LABS: ALT (SGPT) 18 U/L (8-55); AST (SGOT) 16 U/L (5-34); Albumin 3.7 g/dL (3.4-4.8); Alkaline Phosphatase 106 U/L (40-110); Anion Gap 11 mmol/L (10-20); BUN (Urea Nitrogen) 22 mg/dL (8.4-25.7); Bilirubin, Total 0.2 mg/dL (0.2-1.2); Calc. Creatinine Clearance 0 mL/min (70-130); Calcium 9.7 mg/dL (7.8-10.44); Carbon Dioxide 32 mmol/L (23-31); Chloride 102 mmol/L (98-107); Globulin 3.3 g/dL (2.4-3.5); Glucose 155 mg/dL (83-110); Potassium 5.1 mmol/L (3.5-5.1); Sodium 140 mmol/L (136-145)
== END 2021-06-25 22:54 | disposition home or self-care (01) ==
LOC: ERS 19:42
DX: R05 Cough (principal); I10 Essential (primary) hypertension; J44.9 Chronic obstructive pulmonary disease, unspecified; E11.9 Type 2 diabetes mellitus without complications; Z85.46 Personal history of malignant neoplasm of prostate
CPT/HCPCS: 36415; 71045; 80053; 83605; 84484; 85025

== ENCOUNTER 2021-10-15 13:10 | Emergency (ER) | payer MEDICARE ==
[2021-10-15 13:58] LABS: #Lymphocytes 1.4 thou/uL (1.20-3.40); #Monocytes 0.6 thou/uL (0.11-0.59); #Neutrophils 4.2 thou/uL (1.40-6.50); %Basophils 0.3 % (0.0-1.0); %Eosinophils 0.1 % (0.0-10.0); %Lymphocytes 21.9 % (21.0-51.0); %Neutrophils 68.7 % (42.0-75.0); Hemoglobin 12.4 g/dL (14.0-18.0); Mean Corpuscular HGB CONC 31.4 g/dL (32.0-36.0); Mean Corpuscular Hemoglobin 31.1 pg (27.0-31.0); Mean Platelet Volume 7.2 fL (7.4-10.4); Platelet Count 130 thou/uL (130-400); RBC Distribution Width 11.4 % (11.5-14.5); White Blood Cell (WBC) Count 6.1 thou/uL (4.8-10.8)
[2021-10-15 14:11] LABS: ALT (SGPT) 11 U/L (8-55); AST (SGOT) 16 U/L (5-34); Albumin 3.6 g/dL (3.4-4.8); Alkaline Phosphatase 72 U/L (40-110); Anion Gap 12 mmol/L (10-20); BUN (Urea Nitrogen) 14 mg/dL (8.4-25.7); Bilirubin, Total 0.7 mg/dL (0.2-1.2); Calc. Creatinine Clearance 0 mL/min (70-130); Calcium 9.5 mg/dL (7.8-10.44); Carbon Dioxide 28 mmol/L (23-31); Chloride 104 mmol/L (98-107); Globulin 3.7 g/dL (2.4-3.5); Glucose 107 mg/dL (83-110); Lipase 27 U/L (8-78); Potassium 4.6 mmol/L (3.5-5.1); Protein, Total 7.3 g/dL (5.8-8.1); Sodium 139 mmol/L (136-145)
[2021-10-15] MEDS ORDERED: Iopamidol-370 76% 500 ML 1 ML ONE (14:44)
[2021-10-16 17:20] LABS: SARS-CoV-2 PCR by NAA DETECTED (NotDetected)
== END 2021-10-15 18:31 | disposition home or self-care (01) ==
LOC: ERS 13:10
DX: U07.1 COVID-19 (principal); I10 Essential (primary) hypertension; E11.9 Type 2 diabetes mellitus without complications
CPT/HCPCS: 71045; 71275; 80053; 83690; 84484; 85025; 85379; 93005; 94760; U0003; U0005; Q9967

== ENCOUNTER 2021-10-23 13:53 | Emergency (ER) | payer MEDICARE ==
[~2021-10-23 13:53] MED LIST: Iopamidol-370 76% 500 ML 1 ML ONE
[2021-10-23 15:49] LABS: #Lymphocytes 1.6 thou/uL (1.20-3.40); #Monocytes 0.7 thou/uL (0.11-0.59); #Neutrophils 9.1 thou/uL (1.40-6.50); %Basophils 0.1 % (0.0-1.0); %Eosinophils 0.2 % (0.0-10.0); %Lymphocytes 13.8 % (21.0-51.0); %Monocytes 6.3 % (0.0-10.0); %Neutrophils 79.5 % (42.0-75.0); Hemoglobin 12.2 g/dL (14.0-18.0); Mean Corpuscular HGB CONC 30.1 g/dL (32.0-36.0); Mean Corpuscular Volume 99.7 fL (78.0-98.0); Mean Platelet Volume 6.6 fL (7.4-10.4); Platelet Count 182 thou/uL (130-400); RBC Distribution Width 11.3 % (11.5-14.5); Red Blood Cell (RBC) Count 4.08 mill/uL (4.70-6.10); White Blood Cell (WBC) Count 11.4 thou/uL (4.8-10.8)
[2021-10-23 16:09] LABS: ALT (SGPT) 11 U/L (8-55); AST (SGOT) 17 U/L (5-34); Albumin 3.7 g/dL (3.4-4.8); Alkaline Phosphatase 81 U/L (40-110); Anion Gap 13 mmol/L (10-20); BUN (Urea Nitrogen) 14 mg/dL (8.4-25.7); Bilirubin, Total 0.7 mg/dL (0.2-1.2); Calc. Creatinine Clearance 0 mL/min (70-130); Calcium 9.3 mg/dL (7.8-10.44); Carbon Dioxide 28 mmol/L (23-31); Chloride 101 mmol/L (98-107); Globulin 3.6 g/dL (2.4-3.5); Glucose 222 mg/dL (83-110); Potassium 5.1 mmol/L (3.5-5.1); Protein, Total 7.3 g/dL (5.8-8.1); Sodium 137 mmol/L (136-145)
[2021-10-23] MEDS ORDERED: Ondansetron PF 4 MG/2 ML Vial ONE (17:10)
== END 2021-10-23 18:13 | disposition home or self-care (01) ==
LOC: ERS 13:53
DX: U07.1 COVID-19 (principal); E11.65 Type 2 diabetes mellitus with hyperglycemia; I10 Essential (primary) hypertension; J44.9 Chronic obstructive pulmonary disease, unspecified; D72.829 Elevated white blood cell count, unspecified
CPT/HCPCS: 36415; 71045; 71275; 80053; 83880; 84484; 85025; 93005; 96374; J2405; Q9967

== ENCOUNTER 2024-02-07 20:34 | Inpatient (IN) | payer MEDICARE ==
[~2024-02-07 20:34] MED LIST changes: -Iopamidol-370 76% 500 ML 1 ML ONE; +Iopamidol-370 76% 500 ML MDV (1 ML CHARGE) ONE
[2024-02-07] MEDS ORDERED: Acetaminophen 500 MG TAB ONE (21:03)
[2024-02-07] MEDS ORDERED: Piperacillin/Tazobactam 4.5 GM VIAL ONE (21:03)
[2024-02-07] MEDS ORDERED: Sodium Chloride 0.9% 100 ML ONE (21:04)
[2024-02-07 21:17] LABS: Hematocrit 33.5 % (42.0-52.0); Hemoglobin 10.7 g/dL (14.0-18.0); Mean Corpuscular HGB CONC 31.9 g/dL (32.0-36.0); Mean Corpuscular Hemoglobin 31.5 pg (27.0-31.0); Mean Corpuscular Volume 98.5 fL (78.0-98.0); Mean Platelet Volume 10.4 fL (7.4-10.4); Platelet Count 137 10x3/uL (130-400); RBC Distribution Width 13.4 % (11.5-14.5)
[2024-02-07 21:27] LABS: INR-International Normal Ratio 1.2; PTT 26.4 sec (22.9-36.1); Prothrombin Time 15.4 sec (12.0-14.7)
[2024-02-07 21:38] LABS: Globulin 4.2 g/dL (2.4-3.5)
[2024-02-07 21:42] LABS: ALT (SGPT) 10 U/L (8-55); AST (SGOT) 14 U/L (5-34); Albumin 2.7 g/dL (3.4-4.8); Alkaline Phosphatase 70 U/L (40-110); Anion Gap 16 mmol/L (10-20); BUN (Urea Nitrogen) 20 mg/dL (8.4-25.7); Band 8 % (5-11); Bilirubin, Total 1.2 mg/dL (0.2-1.2); Calc. Creatinine Clearance 0 mL/min (70-130); Calcium 9.1 mg/dL (7.8-10.44); Carbon Dioxide 22 mmol/L (23-31); Chloride 105 mmol/L (98-107); Estimated GFR 58; Glucose 187 mg/dL (83-110); Hypochromia SLIGHT = 6-15 cells HPF (0-5); Lipase 7 U/L (8-78); Lymphocytes 5 % (21-51); Monocytes 2 % (0-10); Neutrophil 84 % (42-75); Platelet Adequacy Comment Platelets Normal; Potassium 4.6 mmol/L (3.5-5.1); Protein, Total 6.9 g/dL (5.8-8.1); Sodium 138 mmol/L (136-145)
[2024-02-07 21:46] LABS: Troponin I 0.013 ng/mL (< 0.028)
[2024-02-07 22:01] LABS: Reflex for Review?? YES
[2024-02-08] MEDS ORDERED: Sodium Chloride 0.9% 250 ML 250 ML ONE ×2 (00:29→00:30)
[2024-02-08] MEDS ORDERED: cefTRIAXone (ROCEPHIN) 1 GM VIAL ONE (00:29)
[2024-02-08] MEDS ORDERED: Azithromycin 500 MG VIAL ONE (00:29)
[2024-02-08 01:07] LABS: Lactic Acid 1.5 mmol/L (0.5-2.2)
[2024-02-08 01:29] LABS: Influenza A by NAA Not Detected (NotDetected); Influenza B by NAA Not Detected (NotDetected); SARS-CoV-2 NAA Rapid Test Not Detected (NotDetected)
[2024-02-08] MEDS ORDERED: Ipratropium/Albuterol 3 ML NEB NEB PRN (01:42)
[2024-02-08] MEDS ORDERED: methylPREDNISolone Sod Succ/PF 125 MG/2 ML VIAL ONE (02:14)
[2024-02-08 07:00] LABS: Anion Gap 17 mmol/L (10-20); BUN (Urea Nitrogen) 17 mg/dL (8.4-25.7); Calc. Creatinine Clearance 0 mL/min (70-130); Calcium 9.3 mg/dL (7.8-10.44); Carbon Dioxide 21 mmol/L (23-31); Chloride 107 mmol/L (98-107); Estimated GFR 84; Glucose 174 mg/dL (83-110); Potassium 4.6 mmol/L (3.5-5.1); Sodium 140 mmol/L (136-145)
[2024-02-08] MEDS ORDERED: Ipratropium/Albuterol 3 ML NEB ONE (07:02)
[2024-02-08 07:25] LABS: Troponin I Less than 0.010 ng/mL (< 0.028)
[2024-02-08] MEDS ORDERED: Dextrose 50% Abboject 50 ML SYRINGE SLOW IVP PRN (07:25)
[2024-02-08] MEDS ORDERED: Glucagon 1 MG/ML KIT IM PRN (07:25)
[2024-02-08] MEDS ORDERED: Dextrose 5% in Water 1,000 ML IV PRN (07:25)
[2024-02-08 07:32] LABS: Hematocrit 39.6 % (42.0-52.0); Hemoglobin 12.1 g/dL (14.0-18.0); Mean Corpuscular HGB CONC 30.6 g/dL (32.0-36.0); Mean Corpuscular Hemoglobin 30.5 pg (27.0-31.0); Mean Corpuscular Volume 99.7 fL (78.0-98.0); Mean Platelet Volume 10.4 fL (7.4-10.4); Platelet Count 135 10x3/uL (130-400); RBC Distribution Width 13.6 % (11.5-14.5); Red Blood Cell (RBC) Count 3.97 mill/uL (4.70-6.10)
[2024-02-08] MEDS ORDERED: Enoxaparin 40 MG (0.4 mL) SYRINGE ONE (07:41)
[2024-02-08] MEDS: Enoxaparin 40 MG (0.4 mL) SYRINGE SC SCH (08:12)
[2024-02-08 08:49] LABS: Bacteria/HPF None Seen HPF (None Seen); Bilirubin Negative (Negative); Blood, Urine 1+ (Negative); CAUTI Indications for Culture Dysuria,urgency,freq; Clarity Clear (Clear); Glucose, Urine (Dipstick) Normal (Negative); Ketone, Urine 10 mg/dL (Negative); Leukocyte Negative Leu/uL (Negative); Nitrite Negative (Negative); Protein, Urine (Dipstick) 50 mg/dL (Neg-Trace); RBC/HPF 21-50 HPF (0-3); Squamous Epithelial 0-3 HPF (0-3); Urobilinogen Normal mg/dL (Less than 2); WBC/HPF 0-3 HPF (0-3); pH, Urine 6.5 (5.0-9.0)
[2024-02-08 08:52] LABS: Urine Culture Reflex No No
[2024-02-08 08:57] LABS: Band 17 % (5-11); Lymphocytes 3 % (21-51); Neutrophil 80 % (42-75); Platelet Adequacy Comment Platelets Normal; RBC Morphology Within Normal Limits
[2024-02-08] MEDS ORDERED: Polyethylene Glycol 3350 17 GM Packet PO PRN (09:08)
[2024-02-08] MEDS ORDERED: predniSONE 20 MG TAB PO SCH (12:00)
[2024-02-08 13:28] VITALS: BMI 21.9
[2024-02-08] MEDS: Ipratropium/Albuterol 3 ML NEB NEB SCH (14:00)
[2024-02-08] MEDS ORDERED: Mometasone 100 MCG/Formoterol 5 MCG 120 PUFF INHALER INH SCH (18:30)
[2024-02-08] MEDS: Gabapentin 100 MG CAP PO SCH (20:16)
[2024-02-08] MEDS: cefTRIAXone\\ROCEPHIN 1 GM in Sodium Chloride 0.9% 100 ML IVPB SCH (20:30)
[2024-02-08] MEDS: Mometasone 100 MCG/Formoterol 5 MCG 120 PUFF INHALER INH SCH (20:36)
[2024-02-08] MEDS ORDERED: Azithromycin 250 MG TAB PO SCH (21:00)
[2024-02-08] MEDS ORDERED: Gabapentin 100 MG CAP PO SCH (21:00)
[2024-02-08] MEDS: HumaLOG 300 UNITS/3 ML VIAL SC PRN (21:21)
[2024-02-09 05:22] LABS: #Basophils Less than 0.03 10x3/uL (0.0-0.2); #Eosinphils Less than 0.03 10x3/uL (0.0-0.7); %Basophils 0.1 % (0.0-1.0); %Lymphocytes 12.2 % (21.0-51.0); %Monocytes 5.2 % (0.0-10.0); %Neutrophils 82.1 % (42.0-75.0); Hematocrit 32.1 % (42.0-52.0); Hemoglobin 10.3 g/dL (14.0-18.0); Mean Corpuscular HGB CONC 32.1 g/dL (32.0-36.0); Mean Corpuscular Hemoglobin 30.1 pg (27.0-31.0); Mean Corpuscular Volume 93.9 fL (78.0-98.0); Mean Platelet Volume 10.5 fL (7.4-10.4); Platelet Count 151 10x3/uL (130-400); RBC Distribution Width 13.2 % (11.5-14.5); Red Blood Cell (RBC) Count 3.42 mill/uL (4.70-6.10)
[2024-02-09 05:38] LABS: Anion Gap 14 mmol/L (10-20); BUN (Urea Nitrogen) 23 mg/dL (8.4-25.7); Calc. Creatinine Clearance 65 mL/min (70-130); Calcium 9.3 mg/dL (7.8-10.44); Carbon Dioxide 24 mmol/L (23-31); Chloride 106 mmol/L (98-107); Estimated GFR 84; Glucose 212 mg/dL (83-110); Potassium 4.5 mmol/L (3.5-5.1); Sodium 139 mmol/L (136-145)
[2024-02-09] MEDS ORDERED: predniSONE 20 MG TAB PO SCH (08:00)
[2024-02-09] MEDS: traZODone HCl 50 MG TAB PO SCH (08:25)
[2024-02-09] MEDS: Montelukast Sodium 10 mg Tablet PO SCH (08:25)
[2024-02-09] MEDS: Tamsulosin HCl 0.4 MG CAP PO SCH (08:25)
[2024-02-09] MEDS: Azithromycin 250 MG TAB PO SCH (08:25)
[2024-02-09] MEDS: Bicalutamide 50 MG TAB PO SCH (08:25)
[2024-02-09] MEDS: Loratadine 10 MG TAB PO SCH (08:25)
[2024-02-09] MEDS: Aspirin 81 mg Enteric Coated Tablet PO SCH (08:26)
[2024-02-09] MEDS: predniSONE 20 MG TAB PO SCH (08:26)
[2024-02-09] MEDS: Doxazosin Mesylate 4 MG TAB PO SCH (08:26)
[2024-02-09] MEDS ORDERED: Cetirizine HCl 10 MG TAB PO SCH (09:00)
[2024-02-09] MEDS: HumaLOG 300 UNITS/3 ML VIAL SC PRN (11:48)
[2024-02-09 12:30] VITALS: BMI 21.9
[2024-02-10 04:06] LABS: #Basophils Less than 0.03 10x3/uL (0.0-0.2); #Eosinphils Less than 0.03 10x3/uL (0.0-0.7); %Basophils 0.1 % (0.0-1.0); %Lymphocytes 17.3 % (21.0-51.0); %Monocytes 6.5 % (0.0-10.0); %Neutrophils 75.9 % (42.0-75.0); Hemoglobin 11.1 g/dL (14.0-18.0); Mean Corpuscular HGB CONC 31.7 g/dL (32.0-36.0); Mean Corpuscular Hemoglobin 31.6 pg (27.0-31.0); Mean Corpuscular Volume 99.7 fL (78.0-98.0); Mean Platelet Volume 10.6 fL (7.4-10.4); Platelet Count 159 10x3/uL (130-400); RBC Distribution Width 13.3 % (11.5-14.5); Red Blood Cell (RBC) Count 3.51 mill/uL (4.70-6.10)
[2024-02-10 05:52] LABS: Anion Gap 11 mmol/L (10-20); BUN (Urea Nitrogen) 22 mg/dL (8.4-25.7); Calc. Creatinine Clearance 64 mL/min (70-130); Calcium 9.4 mg/dL (7.8-10.44); Carbon Dioxide 26 mmol/L (23-31); Chloride 107 mmol/L (98-107); Estimated GFR 84; Glucose 191 mg/dL (83-110); Potassium 4.2 mmol/L (3.5-5.1); Sodium 140 mmol/L (136-145)
[2024-02-10] MEDS: Pantoprazole DR 40 MG TAB PO SCH (08:39)
[2024-02-10 11:56] VITALS: BP 163/74; TEMP 98
== END 2024-02-10 13:45 | disposition home or self-care (01) | DRG 193 ==
LOC: ERS 20:34 → ERHOLD 02-08 00:50 → MSONC 02-08 01:00 → OBSVTOIN 02-09 12:01
PROVIDERS: ADMIT Family Medicine; ATTEND Family Medicine
DX: J18.9 Pneumonia, unspecified organism (principal); J96.21 Acute and chronic respiratory failure with hypoxia; E87.20 Acidosis, unspecified; J44.1 Chronic obstructive pulmonary disease with (acute) exacerbation; Z91.040 Latex allergy status; Z79.82 Long term (current) use of aspirin; Z79.899 Other long term (current) drug therapy; I10 Essential (primary) hypertension; E11.9 Type 2 diabetes mellitus without complications; H40.9 Unspecified glaucoma; N40.0 Benign prostatic hyperplasia without lower urinary tract symptoms; Z83.3 Family history of diabetes mellitus; K59.00 Constipation, unspecified
CPT/HCPCS: 36415; 36416; 71045; 74177; 76705; 80048; 80053; 81001; 83605; 83690; 83735; 83880; 84145; 84484; 85025; 85060; 85610; 85730; 87040; 93005; 94640; 96372; 96376; G0378; J0456; J0696; J1650; J1815; J2543; J2930; J3490; J7050; J7512; J7620; Q9967